=== PATIENT | male | born 1945 | race Caucasian/White ===

== ENCOUNTER 2020-05-30 07:14 | Day surgery (SDC) | payer MEDICARE, OTHER ==
[~2020-05-30 07:14] MED LIST: LACTATED RINGERS 1,000 ML IV SCH; LIDOCAINE 1% (10MG/ML) FOR IV START INTRADERMA PRN; MOXIFLOXACIN HCL 0.5% DROPS 3 ML BTL OP ONE; TETRACAINE 0.5% OPHTH (PF) DROPS 4 ML BTL OP ONE; TIMOLOL 0.5% OPHTH DROPS 5 ML BTL OP ONE
[2020-05-30 07:46] VITALS: RESP 16; TEMP 97.3
[2020-05-30] MEDS: CYCLOPENTOLATE 1% OPHTH SOLN 2 ML BTL OP ONE ×3 (07:51→08:02)
[2020-05-30] MEDS: PHENYLEPHRINE 2.5% OPHTH DRP 2ML OP NR ×3 (07:54→08:00)
[2020-05-30] MEDS ORDERED: fentaNYL (PF) 50 MCG/ML 2 ML AMP ONE (08:42)
[2020-05-30] MEDS ORDERED: MIDAZOLAM 2 MG/2 ML VIAL ONE (08:42)
[2020-05-30] MEDS ORDERED: EPINEPHrine (PF) 0.3 ML in BALANCED SALT IRRIG SOLN COMB2 500 ML IRRIGATION ONE (08:54)
[2020-05-30] MEDS ORDERED: BALANCED SALT IRRIG SOLN COMB2 15 ML IRRIG.SOLN IRRIGATION ONE (08:54)
[2020-05-30] MEDS ORDERED: LIDOCAINE 1% (PF) 10MG/ML VIAL MISCELLANE ONE (08:55)
[2020-05-30] MEDS ORDERED: DUOVISC KIT (GREEN BOX) INTRAOCULA ONE (08:55)
[2020-05-30] MEDS ORDERED: ATROPINE OPHTH SOLN 1% 5ML BTL RIGHT EYE ONE (09:12)
--- NOTE | 2020-05-30 09:14 | P.OP ---
Date of Procedure: 05/30/20 Preoperative Diagnosis: NS & CS Postoperative Diagnosis: same Procedure(s) Performed: PIOL, OD Implants: AO1UV 23.50 Anesthesia: MAC Surgeon: Ashkan Gan Pathology: none sent Condition: stable Disposition: same day Indications for Procedure: blurry vision Operative Findings: no complications
[2020-05-30 09:38] VITALS: BP 139/64; PULSE 56
--- NOTE | 2020-05-30 17:38 | OP ---
OPERATIVE REPORT DATE OF SURGERY: 05/30/2020. PROCEDURE: Phacoemulsification of cataract and intraocular lens implant of the right eye. PREOPERATIVE DIAGNOSIS: Nuclear sclerosis and cortical sclerosis, right eye. POSTOPERATIVE DIAGNOSIS: Nuclear sclerosis and cortical sclerosis, right eye. OPERATION: Phacoemulsification of cataract and Crystalens implant of the right eye. NARRATIVE: After obtaining the appropriate consent, the patient was brought to the operating room. There the patient was placed under cardiac monitoring, prepped and draped in the usual sterile manner. The patient was approached from the right temporal side. The 5.5 mm Dar ring inked in gentian mani was placed centrally on the cornea. At the 11 o'clock position, a 1.1 mm keratome was used to create a paracentesis port. Through this opening, 1% Xylocaine MPF 50/50 mix with balanced salt solution was injected into the anterior chamber. This was followed by stabilization of the anterior chamber with Duovisc viscoelastic. At the 9 o'clock position, a 2.75 mm senait keratome was used to create a self-scaling corneal flap incision in a Langerman fashion. Through this opening, a cystotome was introduced to begin a continuous tear capsulorrhexis which was completed using the Utrata forceps. Care was taken to ensure that the capsulorrhexis was at least the size of the meghana on the anterior cornea. Hydrodissection and hydrodelineation of the lens was accomplished with balanced salt solution. Phacoemulsification of the lens utilizing phaco chop was accomplished in 19.58 seconds at 18% power. Additional Xylocaine MPF was instilled into the anterior chamber. This was followed by removal of the remaining cortex under irrigation and aspiration along with careful polishing of the posterior capsule in a capsule vacuum mode. Additional Amvisc viscoelastic was then used to stabilize the capsular bag, and the Bausch [employer] Lomb Crystalens AO1UV 23.5 diopters intraocular lens was injected into the capsular bag without difficulty. The lens was rotated 270 degrees so that the haptics resided at the 6 and 12 o'clock positions, and all remaining viscoelastic was then removed from within the capsular bag and around the anterior chamber. The eye was brought to normal intraocular pressure through the paracentesis port along with slight hydration of the incision sites. Watertight integrity was confirmed using a fluorescein strip. The patient then received 2 drops of 0.5% timolol followed by 2 drops of Vigamox and 2 drops of 1% atropine. The patient was then lightly patched and shielded in the usual manner. There was no complications from the procedure. The patient tolerated the procedure well and was returned to outpatient recovery in good condition. PRIYANKA / HECTOR: [id number] / MTDD
== END 2020-05-30 09:59 | disposition home or self-care (01) ==
LOC: OR 07:14
PROVIDERS: ATTEND Ophthalmology
DX: H25.13 Age-related nuclear cataract, bilateral (principal); H25.013 Cortical age-related cataract, bilateral; H52.11 Myopia, right eye; H52.223 Regular astigmatism, bilateral; H52.4 Presbyopia; I10 Essential (primary) hypertension; E78.5 Hyperlipidemia, unspecified; E03.9 Hypothyroidism, unspecified; E78.00 Pure hypercholesterolemia, unspecified; Z79.890 Hormone replacement therapy; Z79.899 Other long term (current) drug therapy; Z98.890 Other specified postprocedural states; Z79.82 Long term (current) use of aspirin; Z82.3 Family history of stroke; Z82.49 Family history of ischemic heart disease and other diseases of the circulatory system
CPT/HCPCS: 66984; V2632; V2788; J2250; J0171; J3010; J2001

== ENCOUNTER 2021-04-24 10:30 | Day surgery (SDC) | payer MEDICARE ==
[~2021-04-24 10:30] MED LIST changes: -MOXIFLOXACIN HCL 0.5% DROPS 3 ML BTL OP ONE; -TETRACAINE 0.5% OPHTH (PF) DROPS 4 ML BTL OP ONE; -TIMOLOL 0.5% OPHTH DROPS 5 ML BTL OP ONE
[2021-04-24 11:00] VITALS: RESP 16; TEMP 97.6
[2021-04-24] MEDS ORDERED: LIDOCAINE 1% INJ 10MG/ML (20 ML MDV) ONE (11:06)
[2021-04-24] MEDS ORDERED: PROPOFOL 10 MG/ML 20 ML VIAL IV ONE (11:06)
--- NOTE | 2021-04-24 11:22 | P.PCN ---
Date of Procedure: 04/24/21 Procedure(s) Performed: BRIEF HISTORY: Patient is a 75-year-old pleasant white male scheduled for an elective colonoscopy as a part of evaluation of Hemoccult-positive stool. PROCEDURE PERFORMED: Colonoscopy with snare polypectomy. PREOPERATIVE DIAGNOSIS: Blood in the stool. IV sedation per Anesthesia. PROCEDURE: After informed consent was obtained, the patient, was brought into the endoscopy unit. IV sedation was administered by Anesthesia under continuous monitoring. Digital rectal examination was normal. Initially the Olympus CF-160 flexible video colonoscope was then inserted in the rectum, gradually advanced into the cecum without any difficulty. Careful examination was performed as the scope was gradually being withdrawn. Ileocecal valve and the appendiceal orifice were visualized and appeared normal. Prep was excellent. There was a 5 mm polyp noted in the base of the cecum that was removed by snare polypectomy. Scattered sigmoid diverticulosis. Mucosa of the cecum, ascending colon, transverse colon, descending colon, sigmoid colon, and rectum appeared normal. Retroflexion was performed in the rectum and no lesions were seen. The patient tolerated the procedure well. IMPRESSION: 5 mm cecal polyp status post polypectomy Scattered sigmoid diverticulosis RECOMMENDATIONS: Findings of this examination were discussed with the patient as well as his family. He was advised to follow with the biopsy results and if the biopsy reveals adenoma he can have a repeat colonoscopy in 5 years.
[2021-04-24 11:38] VITALS: BP 98/55; PULSE 66
== END 2021-04-24 12:20 | disposition home or self-care (01) ==
LOC: ORWHC2ENDO 10:30
PROVIDERS: ATTEND Internal Medicine Gastroenterology
DX: D12.0 Benign neoplasm of cecum (principal); K57.30 Diverticulosis of large intestine without perforation or abscess without bleeding; I10 Essential (primary) hypertension; E78.5 Hyperlipidemia, unspecified; E07.9 Disorder of thyroid, unspecified; Z79.890 Hormone replacement therapy; Z79.899 Other long term (current) drug therapy
CPT/HCPCS: 88305; 45385; J2001; J2704

== ENCOUNTER 2021-06-05 09:29 | Inpatient (IN) | payer MEDICARE ==
[2021-06-05 10:26] LABS: Anisocytosis Moderate; Basophils % (A) 0 %; Eosinophils % (A) 1 %; Hypochromasia Slight; Lymphocytes # (A) 1.3 k/uL (1.0-4.8); Lymphocytes % (A) 39 %; MCH 33.3 pg (25.0-35.0); MCHC 31.9 g/dL (31.0-37.0); MCV 104.4 fL (80.0-100.0); Macrocytosis Marked; Mean Platelet Volume 12.5; Monocytes # (A) 0.2 k/uL (0-1.0); Monocytes % (A) 5 %; Neutrophils # (A) 1.8 k/uL (1.3-7.7); Neutrophils % (A) 51 %; Platelet Count 213 k/uL (150-450); Poikilocytosis Slight; RDW 21.9 % (11.5-15.5); WBC 3.5 k/uL (3.8-10.6)
[2021-06-05 10:30] LABS: INR 1.1 (<1.2); Partial Thromboplastin Time 25.7 sec (22.0-30.0); Prothrombin Time 11.2 sec (9.0-12.0)
[2021-06-05 10:34] LABS: ALT 13 U/L (4-49); AST 15 U/L (17-59); African American GFR (CKD) >90 (>60 ml/min/1.73 sqM); Albumin 3.8 g/dL (3.5-5.0); Alkaline Phosphatase 46 U/L (38-126); Anion Gap 10 mmol/L; Blood Urea Nitrogen 28 mg/dL (9-20); Calcium 8.6 mg/dL (8.4-10.2); Carbon Dioxide 20 mmol/L (22-30); Chloride 107 mmol/L (98-107); Glucose 116 mg/dL (74-99); Non-African American GFR(CKD) 83 (>60 ml/min/1.73 sqM); Potassium 4.6 mmol/L (3.5-5.1); Sodium 137 mmol/L (137-145); Total Bilirubin 0.4 mg/dL (0.2-1.3); Total Protein 6.7 g/dL (6.3-8.2)
[2021-06-05 10:39] LABS: HGB 5.3 gm/dL (13.0-17.5)
[2021-06-05 10:40] LABS: HCT 16.7 % (39.0-53.0)
[2021-06-05 11:12] LABS: Polychromasia Present; RBC Fragments Present; Tear Drop Cells Present
[2021-06-05 11:13] LABS: Large Platelets Present
--- NOTE | 2021-06-05 11:16 | XR ---
EXAMINATION TYPE: XR chest 2V DATE OF EXAM: 06/05/2021 COMPARISON: NONE TECHNIQUE: PA and lateral views submitted. HISTORY: Shortness of breath FINDINGS: The lungs are clear and there is no pneumothorax, pleural effusion, or focal pneumonia. Heart enlar ged and there is hyperinflation and degenerative change of the spine. Coarsened interstitium. Diffuse osteopenia. Arthropathy of the shoulders. IMPRESSION: 1. Cardiomegaly and COPD correlate for chronic interstitial lung disease..
[2021-06-05] MEDS ORDERED: NALOXONE 0.4 MG/ML 1 ML VIAL IV PRN (11:27)
[2021-06-05] MEDS ORDERED: ONDANSETRON 4 MG/2 ML VIAL IVP PRN (11:27)
--- NOTE | 2021-06-05 11:35 | ED ---
Recheck HPI - General Chief Complaint: Recheck/Abnormal Lab/Rx Stated Complaint: Low Hemoglobin Time Seen by Provider: 06/05/21 10:10 Source: patient, family, RN notes reviewed Mode of arrival: ambulatory Limitations: no limitations - History of Present Illness Initial Comments: Patient is a 75-year-old male, with history of hypertension, hyperlipidemia, thyroid disorder, presenting to the emergency department by request from his primary care physician. He states he had routine labs drawn one to 2 days ago and he was called today stating that his hemoglobin was low and to go into the ER. They told him is was 5.5. He has no history of anemia, he had labs done 6 months ago which were normal. He denies any symptoms today except for some mild shortness breath that he's been dealing with over the past month. He states it's worse when he is up and doing activities, he also has some intermittent chest tightness along with this as well. He did talk to his doctor about this and had a follow-up with cardiology. He denies any abdominal pain, no nausea or vomiting, no dizziness. He denies hematochezia or hematemesis, he is not on blood thinners. He had a colonoscopy last month with Dr. Wilson, she removed a polyp but no other acute findings. He denies any hematuria. He has no further complaints at this time. Upon arrival to the ER, his vital signs are stable. - Related Data Home Medications Medication Instructions Recorded Confirmed Aspirin [Adult Low Dose Aspirin EC] 81 mg PO DAILY 05/29/20 06/05/21 Enalapril [Vasotec] 20 mg PO BID 05/29/20 06/05/21 Levothyroxine Sodium [Synthroid] 125 mcg PO QAM 05/29/20 06/05/21 Lovastatin [Mevacor] 20 mg PO BID 05/29/20 06/05/21 Multivitamins, Thera [Multivitamin 1 tab PO DAILY 05/29/20 06/05/21 (formulary)] amLODIPine [Norvasc] 5 mg PO QAM 05/29/20 06/05/21 Glucos Sul 2Kcl/MSM/Chond/C/Mn 1 each PO DAILY 04/24/21 06/05/21 [Glucosamine Chondroitin Cap] Krill Oil 500 mg PO DAILY 04/24/21 06/05/21 Allergies Allergy/AdvReac Type Severity Reaction Status Date / Time No Known Allergies Allergy Verified 06/05/21 10:55 Review of Systems ROS Statement: Those systems with pertinent positive or pertinent negative responses have been documented in the HPI. ROS Other: All systems not noted in ROS Statement are negative. Past Medical History Past Medical History: Hyperlipidemia, Hypertension, Thyroid Disorder History of Any Multi-Drug Resistant Organisms: None Reported Past Surgical History: Hernia Repair, Uterine Ablation Additional Past Surgical History / Comment(s): colonoscopy, cataract surgery Past Anesthesia/Blood Transfusion Reactions: No Reported Reaction Past Psychological History: No Psychological Hx Reported Smoking Status: Never smoker Past Alcohol Use History: Occasional Past Drug Use History: None Reported - Past Family History Mother Family Medical History: No Reported History General Exam - General Exam Comments Initial Comments: GENERAL: Patient is well-developed and well-nourished. Patient is nontoxic and in no acute distress. HEAD: Atraumatic, normocephalic. EYES: Pupils equal round and reactive to light, extraocular movements intact, sclera anicteric, conjunctiva are normal. Eyelids were unremarkable. ENT: Nares patent, oropharynx clear without exudates. Moist mucous membranes. NECK: Normal range of motion, supple without lymphadenopathy or JVD. LUNGS: Unlabored respirations. Breath sounds clear to auscultation bilaterally and equal. No wheezes rales or rhonchi. HEART: Regular rate and rhythm without murmurs, rubs or gallops. ABDOMEN: Soft, nontender, normoactive bowel sounds. No guarding, no rebound. No masses appreciated. : Deferred MUSCULOSKELETAL: Normal extremities with adequate strength and normal range of motion, no pitting or edema. No clubbing or cyanosis. NEUROLOGICAL: Patient is alert and oriented x 3. Motor and sensory are also intact. Cranial nerves II through XII grossly intact. Symmetrical smile. Normal speech, normal gait. PSYCH: Normal mood, normal affect. SKIN: Warm, Dry, normal turgor, no rashes or lesions noted. Limitations: no limitations Rectal exam: Present: normal inspection, normal rectal tone, heme (-) stool. Absent: black stool, bloody stool, hemorrhoids Course Vital Signs 06/05/21 06/05/21 06/05/21 09:34 12:00 12:29 Temperature 98.1 F 99 F 98.9 F Pulse Rate 85 87 73 Respiratory 18 16 18 Rate Blood Pressure 126/54 137/83 121/58 O2 Sat by Pulse 100 99 Oximetry 06/05/21 12:59 Temperature 98.8 F Pulse Rate 67 Respiratory 18 Rate Blood Pressure 121/65 O2 Sat by Pulse Oximetry Medical Decision Making - Medical Decision Making Patient is a 75-year-old male with history of hypertension, hyperlipidemia, thyroid disorder presenting for low hemoglobin that was done and routine labs a few days ago. His only complaint today is some dyspnea with exertion over the past month, he has been seeing his doctor about this. No belly pain, no hematochezia, no hematemesis, no hematuria. He had a colonoscopy done last month by Dr. Wilson, they removed a small polyp, no other findings. His hemoglobin today is 5.3. EKG is reading normal sinus rhythm, troponin is normal at this time. His stool occult blood is negative. Chest x-ray shows cardiomegaly and COPD. I spoke with Dr. Randolph who agrees to consult on this patient, at CT of the abdomen and pelvis was ordered per her request. This is currently pending. Dr. Chamberlain is accepting physician. Case discussed with Dr. Harp. - Lab Data Result diagrams: 06/05/21 10:09 06/05/21 10:09 Lab Results 06/05/21 06/05/21 06/05/21 Range/Units 10:09 10:09 10:09 WBC 3.5 L (3.8-10.6) k/uL RBC 1.60 L (4.30-5.90) m/uL Hgb 5.3 L* (13.0-17.5) gm/dL Hct 16.7 L* (39.0-53.0) % MCV 104.4 H (80.0-100.0) fL MCH 33.3 (25.0-35.0) pg MCHC 31.9 (31.0-37.0) g/dL RDW 21.9 H (11.5-15.5) % Plt Count 213 (150-450) k/uL MPV 12.5 Neutrophils % 51 % Lymphocytes % 39 % Monocytes % 5 % Eosinophils % 1 % Basophils % 0 % Neutrophils # 1.8 (1.3-7.7) k/uL Lymphocytes # 1.3 (1.0-4.8) k/uL Monocytes # 0.2 (0-1.0) k/uL Eosinophils # 0.0 (0-0.7) k/uL Basophils # 0.0 (0-0.2) k/uL Manual Slide Review Performed Large Platelets Present Polychromasia Present Hypochromasia Slight Poikilocytosis Slight Anisocytosis Moderate Macrocytosis Marked A Tear Drop Cells Present Fragmented RBCs Present PT 11.2 (9.0-12.0) sec INR 1.1 (<1.2) APTT 25.7 (22.0-30.0) sec Sodium 137 (137-145) mmol/L Potassium 4.6 (3.5-5.1) mmol/L Chloride 107 (98-107) mmol/L Carbon Dioxide 20 L (22-30) mmol/L Anion Gap 10 mmol/L BUN 28 H (9-20) mg/dL Creatinine 0.90 (0.66-1.25) mg/dL Est GFR (CKD-EPI)AfAm >90 (>60 ml/min/1.73 sqM) Est GFR (CKD-EPI)NonAf 83 (>60 ml/min/1.73 sqM) Glucose 116 H (74-99) mg/dL Plasma Lactic Acid Clemente (0.7-2.0) mmol/L Calcium 8.6 (8.4-10.2) mg/dL Total Bilirubin 0.4 (0.2-1.3) mg/dL AST 15 L (17-59) U/L ALT 13 (4-49) U/L Alkaline Phosphatase 46 (38-126) U/L Troponin I (0.000-0.034) ng/mL Total Protein 6.7 (6.3-8.2) g/dL Albumin 3.8 (3.5-5.0) g/dL Stool Occult Blood (Negative) Blood Type Blood Type Confirm Blood Type Recheck Bld Type Recheck Status Antibody Screen Crossmatch Spec Expiration Date 06/05/21 06/05/21 06/05/21 Range/Units 10:09 10:09 10:10 WBC (3.8-10.6) k/uL RBC (4.30-5.90) m/uL Hgb (13.0-17.5) gm/dL Hct (39.0-53.0) % MCV (80.0-100.0) fL MCH (25.0-35.0) pg MCHC (31.0-37.0) g/dL RDW (11.5-15.5) % Plt Count (150-450) k/uL MPV Neutrophils % % Lymphocytes % % Monocytes % % Eosinophils % % Basophils % % Neutrophils # (1.3-7.7) k/uL Lymphocytes # (1.0-4.8) k/uL Monocytes # (0-1.0) k/uL Eosinophils # (0-0.7) k/uL Basophils # (0-0.2) k/uL Manual Slide Review Large Platelets Polychromasia Hypochromasia Poikilocytosis Anisocytosis Macrocytosis Tear Drop Cells Fragmented RBCs PT (9.0-12.0) sec INR (<1.2) APTT (22.0-30.0) sec Sodium (137-145) mmol/L Potassium (3.5-5.1) mmol/L Chloride (98-107) mmol/L Carbon Dioxide (22-30) mmol/L Anion Gap mmol/L BUN (9-20) mg/dL Creatinine (0.66-1.25) mg/dL Est GFR (CKD-EPI)AfAm (>60 ml/min/1.73 sqM) Est GFR (CKD-EPI)NonAf (>60 ml/min/1.73 sqM) Glucose (74-99) mg/dL Plasma Lactic Acid Clemente 1.0 (0.7-2.0) mmol/L Calcium (8.4-10.2) mg/dL Total Bilirubin (0.2-1.3) mg/dL AST (17-59) U/L ALT (4-49) U/L Alkaline Phosphatase (38-126) U/L Troponin I 0.022 (0.000-0.034) ng/mL Total Protein (6.3-8.2) g/dL Albumin (3.5-5.0) g/dL Stool Occult Blood (Negative) Blood Type A Positive Blood Type Confirm Blood Type Recheck No Previous Record Bld Type Recheck Status CABO Indicated Antibody Screen NEGATIVE Crossmatch See Detail Spec Expiration Date 06/08/2021 - 2310 10/20/21 10/20/21 Range/Units 10:24 10:32 WBC (3.8-10.6) k/uL RBC (4.30-5.90) m/uL Hgb (13.0-17.5) gm/dL Hct (39.0-53.0) % MCV (80.0-100.0) fL MCH (25.0-35.0) pg MCHC (31.0-37.0) g/dL RDW (11.5-15.5) % Plt Count (150-450) k/uL MPV Neutrophils % % Lymphocytes % % Monocytes % % Eosinophils % % Basophils % % Neutrophils # (1.3-7.7) k/uL Lymphocytes # (1.0-4.8) k/uL Monocytes # (0-1.0) k/uL Eosinophils # (0-0.7) k/uL Basophils # (0-0.2) k/uL Manual Slide Review Large Platelets Polychromasia Hypochromasia Poikilocytosis Anisocytosis Macrocytosis Tear Drop Cells Fragmented RBCs PT (9.0-12.0) sec INR (<1.2) APTT (22.0-30.0) sec Sodium (137-145) mmol/L Potassium (3.5-5.1) mmol/L Chloride (98-107) mmol/L Carbon Dioxide (22-30) mmol/L Anion Gap mmol/L BUN (9-20) mg/dL Creatinine (0.66-1.25) mg/dL Est GFR (CKD-EPI)AfAm (>60 ml/min/1.73 sqM) Est GFR (CKD-EPI)NonAf (>60 ml/min/1.73 sqM) Glucose (74-99) mg/dL Plasma Lactic Acid Clemente (0.7-2.0) mmol/L Calcium (8.4-10.2) mg/dL Total Bilirubin (0.2-1.3) mg/dL AST (17-59) U/L ALT (4-49) U/L Alkaline Phosphatase (38-126) U/L Troponin I (0.000-0.034) ng/mL Total Protein (6.3-8.2) g/dL Albumin (3.5-5.0) g/dL Stool Occult Blood Negative (Negative) Blood Type Blood Type Confirm A Positive Blood Type Recheck Bld Type Recheck Status Antibody Screen Crossmatch Spec Expiration Date - EKG Data EKG Comments: Normal sinus rhythm, nonspecific ST abnormality, no signs of acute ST segment elevation. Ventricular rate 81, AK interval 166, QT 402. Disposition Clinical Impression: Acute anemia Disposition: ADMITTED IP TO THIS HOSP Condition: Stable Decision Date: 06/05/21 Decision Time: 11:35
[2021-06-05 11:51] LABS: Appearance,Urine Clear (Clear); Bilirubin,Urine Negative (Negative); Blood,Urine Negative (Negative); Color,Urine Light Yellow; Glucose,Urine (UA) Negative (Negative); Ketones,Urine Negative (Negative); Leukocyte Esterase,Urine Negative (Negative); Nitrite,Urine Negative (Negative); Protein,Urine Negative (Negative); Specific Gravity,Urine 1.016 (1.001-1.035); Urobilinogen,Urine <2.0 mg/dL (<2.0)
--- NOTE | 2021-06-05 12:17 | CT ---
EXAMINATION TYPE: CT abdomen pelvis w con DATE OF EXAM: 06/05/2021 COMPARISON: HISTORY: Low Hemoglobin CT DLP: 1423.6 mGycm Automated exposure control for dose reduction was used. CONTRAST: CT scan of the abdomen pelvis is performed with IV Contrast, patient injected with 100 mL of Isovue 3 00. FINDINGS- LUNG BASES-small right pleural effusion. LIVER/GB- No gross abnormality is appreciated. PANCREAS-9 mm nodule just posterior to the body and uncinate process of the pancreas axial image 30 i s indeterminate recommend MRI.. SPLEEN- No gross abnormality is seen. ADRENALS- No gross abnormality is seen. KIDNEYS/BLADDER- no hydronephrosis. There is a simple appearing left renal cyst. BOWEL-bowel gas pattern nonspecific with changes of diverticulosis. Multiple prominent small bowel lo ops. LYMPH NODES- No greater than 1cm abdominal or pelvic lymph nodes areappreciated. OSSEOUS STRUCTURES-there is an age indeterminate fracture of L2 approximate 5% retropulsion. Recommen d follow-up MRI. Lucency involving the posterior right iliac bone. This could be correlated with bone scan.. OTHER- the prostate gland is enlarged. Correlate with PSA. Atherosclerotic change of the aorta which is of normal caliber. IMPRESSION- 1. Small right pleural effusion. 2. Prostate is markedly enlarged correlate with PSA. 3. Age-indeterminate fracture involving the body of L2 with 5% retropulsion. Posterior elements appea r to be intact. No prior exams available for comparison, recommend MRI. Pathologic fracture not exclu ded 4. there is a 9 mm nodule in the peripancreatic space posterior to the body the pancreas which could represent a small lymph node. Recommend is also be evaluated with MRI. 5. There are a few scattered prominent small bowel loops which could be related to an ileus or enteri tis correlate clinically. 6. Cardiomegaly and coronary artery calcification. 7. Lucent lesion involving the posterior right iliac bone could be correlated with bone scan.
--- NOTE | 2021-06-05 14:36 | P.GSCN ---
<Karime Gonzalez - Last Filed: 06/05/21 14:02> History of Present Illness Consult date: 06/05/21 Reason for Consult: Anemia Requesting physician: Maryuri Lopez History of present illness: CHIEF COMPLAINT: Abnormal labs, shortness of breath HISTORY OF PRESENT ILLNESS: This is a 75-year-old male who presented to the e mergemny department today after receiving a call from his physician that his blood count was low and he needed to come to the emergency department for further evaluation and blood transfusion. Apparently the patient was having routine blood draw and was found to be anemic. He denies any history of anemia, denies any history of previous blood transfusion, or bleeding disorders. He denies any anticoagulation, frequent NSAID use, or acid reflux. He denies any abdominal pain, nausea, or vomiting. He denies any black stool or hematochezia. Denies any hematemesis. He recently underwent a colonoscopy on 04/24/[address] Wilson for cold positive stool. Colonoscopy was significant for polypectomy and scattered sigmoid diverticulosis. Biopsy results came back as tubular adenoma. He states over the last 1 month he has had some increased shortness of breath especially exertional dyspnea and fatigue. WBC 3.5 hemoglobin 5.3 hematocrit 16.7 platelet count 213,000 INR 1.1. Stool occult blood negative. Patient is currently getting 1 unit of PRBC transfusion. PAST MEDICAL HISTORY: Hypertension, hyperlipidemia, hypothyroid PAST SURGICAL HISTORY: Hernia repair, colonoscopy 04/24/21, cataract surgery MEDICATIONS: See list. ALLERGIES: See list. SOCIAL HISTORY: No illicit drug use. Nonsmoker. REVIEW OF SYSTEMS: CONSTITUTIONAL: Denies fever or chills. HEENT: Denies blurred vision, vision changes, or eye pain. Denies hemoptysis ENDOCRINE: Denies heat or cold intolerance. CARDIOVASCULAR: Denies chest pain or pressure. RESPIRATORY: Shortness of breath, dyspnea on exertion. GASTROINTESTINAL: Denies abdominal pain. Denies nausea or vomiting. Denies black stool or blood in stool. Denies hematemesis. NEURO: Denies history of seizures. PSYCH: No depression or suicidal ideation HEMATOLOGIC: Denies bleeding disorders. No previous blood transfusions. GENITOURINARY: Denies any blood in urine or increased urinary frequency. MUSCULOSKELETAL: Denies myalgias. Denies joint swelling. Denies decreased range of motion beyond patients baseline. SKIN: Denies pruitis. Denies rash. PHYSICAL EXAM: VITAL SIGNS: Reviewed GENERAL: Well-developed in no acute distress. HEENT: No sclera icterus. Extraocular movements grossly intact. Moist buccal mucosa. Head is atraumatic, normocephalic. Hears conversational speech. No nasal drainage. NECK: Supple without lymphadenopathy. CHEST: Non-labored respirations and equal bilateral excursions. CARDIOVASCULAR: Palpable 2+ radial pulses. ABDOMEN: Soft. Nondistended. Nontender MUSCULOSKELETAL: No clubbing or cyanosis. NEUROLOGIC: No focal or lateralizing signs. Cranial nerves II through XII grossly intact. PSYCH: Appropriate affect. Alert and oriented to person, place and time. SKIN: Well perfused. Good skin turgor. LABORATORY DATA: WBC 3.5 hemoglobin 5.3 hematocrit 16.7 platelet count 213,000 INR 1.1 troponin 0.022 Sodium 137 potassium 4.6 be within 28 creatinine 0.9 calcium 8.6 Total bilirubin 0.4 AST 15 ALT 13 alkaline phosphatase 46, total protein 6.7 IMAGING: CT abdomen and pelvis: Small right pleural effusion, prostate markedly enlarged correlate with PSA, age indeterminate fracture involving the body of L2 with 5% retropulsion. Posterior elements appear to be intact. No prior exams available for comparison, recommend MRI. Pathologic fracture not excluded. 9 mm nodule in the area pancreatic posterior to body of the pancreas which could represent a small lymph node. Recommend also be evaluated with MRI. Few scattered prominent small bowel loops which could be related to an ileus or enteritis, correlate clinically. Cardiomegaly and coronary artery calcification. Lucent lesion involving the posterior right iliac bone could be correlated with bone scan. ASSESSMENT: 1. Anemia 2. Shortness of breath, dyspnea with exertion 3. History of hypertension 4. History of hyperlipidemia 5. History of hypothyroidism PLAN: - Anemia panel ordered -Patient may have regular diet, nothing by mouth after midnight -Agree with blood transfusion -Patient is scheduled for EGD tomorrow -Repeat CBC in the morning -Consider hematology consult if EGD with no evidence of GI bleed The impression and plan of care has been dictated as directed. Dr. Randolph I performed a history and examination of this patient, discussed the same with the dictator. I agree with the dictator's note ,documented as a scribe. Any additional findings or plans will be noted. Past Medical History Past Medical History: Hyperlipidemia, Hypertension, Thyroid Disorder History of Any Multi-Drug Resistant Organisms: None Reported Past Surgical History: Hernia Repair, Uterine Ablation Additional Past Surgical History / Comment(s): colonoscopy, cataract surgery Past Anesthesia/Blood Transfusion Reactions: No Reported Reaction Past Psychological History: No Psychological Hx Reported Smoking Status: Never smoker Past Alcohol Use History: Occasional Past Drug Use History: None Reported - Past Family History Mother Family Medical History: No Reported History Medications and Allergies Home Medications Medication Instructions Recorded Confirmed Type Aspirin [Adult Low Dose Aspirin EC] 81 mg PO DAILY 05/29/20 06/05/21 History Enalapril [Vasotec] 20 mg PO BID 05/29/20 06/05/21 History Levothyroxine Sodium [Synthroid] 125 mcg PO QAM 05/29/20 06/05/21 History Lovastatin [Mevacor] 20 mg PO BID 05/29/20 06/05/21 History Multivitamins, Thera [Multivitamin 1 tab PO DAILY 05/29/20 06/05/21 History (formulary)] amLODIPine [Norvasc] 5 mg PO QAM 05/29/20 06/05/21 History Glucos Sul 2Kcl/MSM/Chond/C/Mn 1 each PO DAILY 04/24/21 06/05/21 History [Glucosamine Chondroitin Cap] Krill Oil 500 mg PO DAILY 04/24/21 06/05/21 History Allergies Allergy/AdvReac Type Severity Reaction Status Date / Time No Known Allergies Allergy Verified 06/05/21 10:55 Surgical - Exam Vital Signs Temp Pulse Resp BP Pulse Ox 98.1 F 85 18 126/54 100 06/05/21 09:34 06/05/21 09:34 06/05/21 09:34 06/05/21 09:34 06/05/21 09:34 Results - Labs 06/05/21 10:09 06/05/21 10:09 Abnormal Lab Results - Last 24 Hours (Table) 06/05/21 06/05/21 06/05/21 Range/Units 10:09 10:09 10:10 WBC 3.5 L (3.8-10.6) k/uL RBC 1.60 L (4.30-5.90) m/uL Hgb 5.3 L* (13.0-17.5) gm/dL Hct 16.7 L* (39.0-53.0) % MCV 104.4 H (80.0-100.0) fL RDW 21.9 H (11.5-15.5) % Macrocytosis Marked A Carbon Dioxide 20 L (22-30) mmol/L BUN 28 H (9-20) mg/dL Glucose 116 H (74-99) mg/dL AST 15 L (17-59) U/L Crossmatch See Detail Diabetes panel 06/05/21 Range/Units 10:09 Sodium 137 (137-145) mmol/L Potassium 4.6 (3.5-5.1) mmol/L Chloride 107 (98-107) mmol/L Carbon Dioxide 20 L (22-30) mmol/L BUN 28 H (9-20) mg/dL Creatinine 0.90 (0.66-1.25) mg/dL Glucose 116 H (74-99) mg/dL Calcium 8.6 (8.4-10.2) mg/dL AST 15 L (17-59) U/L ALT 13 (4-49) U/L Alkaline Phosphatase 46 (38-126) U/L Total Protein 6.7 (6.3-8.2) g/dL Albumin 3.8 (3.5-5.0) g/dL Calcium panel 06/05/21 Range/Units 10:09 Calcium 8.6 (8.4-10.2) mg/dL Albumin 3.8 (3.5-5.0) g/dL Pituitary panel 06/05/21 Range/Units 10:09 Sodium 137 (137-145) mmol/L Potassium 4.6 (3.5-5.1) mmol/L Chloride 107 (98-107) mmol/L Carbon Dioxide 20 L (22-30) mmol/L BUN 28 H (9-20) mg/dL Creatinine 0.90 (0.66-1.25) mg/dL Glucose 116 H (74-99) mg/dL Calcium 8.6 (8.4-10.2) mg/dL Adrenal panel 06/05/21 Range/Units 10:09 Sodium 137 (137-145) mmol/L Potassium 4.6 (3.5-5.1) mmol/L Chloride 107 (98-107) mmol/L Carbon Dioxide 20 L (22-30) mmol/L BUN 28 H (9-20) mg/dL Creatinine 0.90 (0.66-1.25) mg/dL Glucose 116 H (74-99) mg/dL Calcium 8.6 (8.4-10.2) mg/dL Total Bilirubin 0.4 (0.2-1.3) mg/dL AST 15 L (17-59) U/L ALT 13 (4-49) U/L Alkaline Phosphatase 46 (38-126) U/L Total Protein 6.7 (6.3-8.2) g/dL Albumin 3.8 (3.5-5.0) g/dL <AgustínZuri N - Last Filed: 06/06/21 10:27> History of Present Illness History of present illness: CHIEF COMPLAINT: Acute anemia HISTORY OF PRESENT ILLNESS: The patient is a 75 year old male who was sent to the emergency today after abnormal hemoglobin on repeat blood work from his provider's office. His hemoglobin at his physician's office was 5.5 g/dL. He presents emergency room with repeat hemoglobin hemoglobin of 5.3. Denies any hematemesis. Denies any dark stools or bloody stools. Denies any gastrointestinal bleeding. He does report increased fatigue in the last several days. No reports of abdominal pain. Last colonoscopy less than 2 months ago with colon adenoma resected. He has not had a prior upper endoscopy. General surgery is consulted for anemia of unclear etiology. PAST MEDICAL HISTORY: See list and reviewed PAST SURGICAL HISTORY: See list and reviewed MEDICATIONS: See list and reviewed ALLERGIES: See list and reviewed SOCIAL HISTORY: See list and reviewed FAMILY HISTORY: See list and reviewed REVIEW OF ORGAN SYSTEMS: CONSTITUTIONAL: No fevers or chills. EYES: Denies any trouble with vision. No glasses. HEENT: No difficulties with hearing. No nosebleeds. No difficulty swallowing. RESPIRATORY: Denies pneumonia. Denies any troubles with breathing or dyspnea on exertion. CARDIOVASCULAR: Denies any chest pain, palpitations, or recent heart attacks. Has hyperlipidemia and hypertension. GASTROINTESTINAL: Denies fatty food intolerance. Denies change in bowel habits and gas bloat. GENITOURINARY: Denies any blood in urine or increased urinary frequency. NEUROLOGICAL: Denies any numbness or tingling along the distal extremities. No seizure disorders or headaches. MUSCULOSKELETAL: Has back pain, stiffness or joint arthritis. SKIN: No current skin cancer. No rash. PSYCHIATRIC: Denies current depression or suicidal thoughts. ENDOCRINE: Denies current thyroid disorders. Denies any blood sugar glucose intolerance. HEME/LYMPHATIC: New anemia. ALLERGY/IMMUNOLOGY: No immunoglobulin therapy. No immune deficiencies. BREAST: Denies current breast lumps, pain or nipple discharge. PHYSICAL EXAM: VITALS: Reviewed CONSTITUTIONAL: Well developed and in no acute distress. EYES: Conjuctivae without sclera icterus. Extraocular movements grossly intact. HEAD, EARS, NOSE, THROAT: Moist buccal mucosa. Head is atraumatic, normocephalic. Hears conversational speech. No nasal drainage. NECK: Supple. No JV distention. No thyroidomegaly. RESPIRATORY: Non-labored respirations and equal bilateral excursions. No gross wheezes. CARDIOVASCULAR: Regular rate and rhythm. Palpable 2+ radial pulses. ABDOMEN: Nontender. LYMPH: No gross neck lymphadenopathy. MUSCULOSKELETAL: No clubbing cyanosis or edema. SKIN: Warm and well perfused with good skin turgor. NEUROLOGIC: Cranial nerves II through XII grossly intact. No focal or lateralizing signs. PSYCH: Appropriate affect. Alert and oriented to person, place and time. Displays appropriate insight. CLINCAL LABS: Reviewed. Hemoglobin 5.3 low with severe anemia. RADIOLOGY: Report reviewed Chest x-ray demonstrates COPD including cardiomegaly. EKG: Nonspecific ST abnormality. RECORDS: Colonoscopy April 2021 demonstrates sigmoid diverticulosis with 5- mm resected polyp of the cecum. PATHOLOGY: Tubular adenoma of cecum. ASSESSMENT: 1. Severe anemia, hemoglobin 5.3 of unclear etiology. PLAN: 1. We'll proceed with upper endoscopy as colonoscopy was less than 2 months ago. 2. Recommend CT of the abdomen and pelvis as lymphoma or masses may account for acute anemia. 3. Recommend iron indices and iron panel for anemia 4. Further recommendations pending results of imaging. 5. Agree with blood transfusion for symptomatic anemia ADVANCE DIRECTIVE: Thank you for this kind consultation. Surgical - Exam Vital Signs Temp Pulse Resp BP Pulse Ox 98.1 F 85 18 126/54 100 06/05/21 09:34 06/05/21 09:34 06/05/21 09:34 06/05/21 09:34 06/05/21 09:34 Results - Labs 06/06/21 08:43 06/05/21 10:09 Abnormal Lab Results - Last 24 Hours (Table) 06/05/21 06/05/21 06/05/21 Range/Units 10:09 10:09 10:10 WBC 3.5 L (3.8-10.6) k/uL RBC 1.60 L (4.30-5.90) m/uL Hgb 5.3 L* (13.0-17.5) gm/dL Hct 16.7 L* (39.0-53.0) % MCV 104.4 H (80.0-100.0) fL RDW 21.9 H (11.5-15.5) % Macrocytosis Marked A Carbon Dioxide 20 L (22-30) mmol/L BUN 28 H (9-20) mg/dL Glucose 116 H (74-99) mg/dL AST 15 L (17-59) U/L Crossmatch See Detail Diabetes panel 06/05/21 Range/Units 10:09 Sodium 137 (137-145) mmol/L Potassium 4.6 (3.5-5.1) mmol/L Chloride 107 (98-107) mmol/L Carbon Dioxide 20 L (22-30) mmol/L BUN 28 H (9-20) mg/dL Creatinine 0.90 (0.66-1.25) mg/dL Glucose 116 H (74-99) mg/dL Calcium 8.6 (8.4-10.2) mg/dL AST 15 L (17-59) U/L ALT 13 (4-49) U/L Alkaline Phosphatase 46 (38-126) U/L Total Protein 6.7 (6.3-8.2) g/dL Albumin 3.8 (3.5-5.0) g/dL Calcium panel 06/05/21 Range/Units 10:09 Calcium 8.6 (8.4-10.2) mg/dL Albumin 3.8 (3.5-5.0) g/dL Pituitary panel 06/05/21 Range/Units 10:09 Sodium 137 (137-145) mmol/L Potassium 4.6 (3.5-5.1) mmol/L Chloride 107 (98-107) mmol/L Carbon Dioxide 20 L (22-30) mmol/L BUN 28 H (9-20) mg/dL Creatinine 0.90 (0.66-1.25) mg/dL Glucose 116 H (74-99) mg/dL Calcium 8.6 (8.4-10.2) mg/dL Adrenal panel 06/05/21 Range/Units 10:09 Sodium 137 (137-145) mmol/L Potassium 4.6 (3.5-5.1) mmol/L Chloride 107 (98-107) mmol/L Carbon Dioxide 20 L (22-30) mmol/L BUN 28 H (9-20) mg/dL Creatinine 0.90 (0.66-1.25) mg/dL Glucose 116 H (74-99) mg/dL Calcium 8.6 (8.4-10.2) mg/dL Total Bilirubin 0.4 (0.2-1.3) mg/dL AST 15 L (17-59) U/L ALT 13 (4-49) U/L Alkaline Phosphatase 46 (38-126) U/L Total Protein 6.7 (6.3-8.2) g/dL Albumin 3.8 (3.5-5.0) g/dL Assessment and Plan (1) Cardiomegaly Current Visit: Yes Status: Acute Code(s): I51.7 - CARDIOMEGALY SNOMED Code(s): 8118090 (2) Adenoma of cecum Current Visit: Yes Status: Acute Code(s): D12.0 - BENIGN NEOPLASM OF CECUM SNOMED Code(s): 26124553 (3) Sigmoid diverticulosis Current Visit: Yes Status: Acute Code(s): K57.30 - DVRTCLOS OF LG INT W/O PERFORATION OR ABSCESS W/O BLEEDING SNOMED Code(s): 194843447 (4) Hypertensive heart disease Current Visit: Yes Status: Acute Code(s): I11.9 - HYPERTENSIVE HEART DISEASE WITHOUT HEART FAILURE SNOMED Code(s): 24758218 (5) Acute anemia Current Visit: Yes Status: Acute Code(s): D64.9 - ANEMIA, UNSPECIFIED SNOMED Code(s): 345548730
--- NOTE | 2021-06-05 17:15 | P.HPIM ---
History of Present Illness H&P Date: 06/05/21 Chief Complaint: Low hemoglobin This is a very pleasant 75-year-old patient, follows with . Chronic stable medical conditions include hypertension, hyperlipidemia, hypothyroid. Patient is fairly active. Patient had a six-month checkup with his family doctor and was told to come into the ER as his hemoglobin was 5.5. Patient does take a baby aspirin. He has been recently being feeling tired and getting easily short winded with activity. May 07 patient had a negative colonoscopy for Dr. Kervin Wilson only finding was that of a polyp and sigmoid diverticulosis. This had resulted following a positive occult blood test. Patient denies any reflux symptoms. Appetite is good. No weight loss. We do not have GI services in the hospital for [address] Aguirre was consulted from surgical team. Patient's son is at the bedside. Review of systems: GEN.: Tired EYES: None HEENT: None NECK: None RESPIRATORY: None CARDIOVASCULAR: None GASTROINTESTINAL: None GENITOURINARY: None MUSCULOSKELETAL: None LYMPHATICS: None HEMATOLOGICAL: None PSYCHIATRY: None NEUROLOGICAL: None Past medical history to include: Hypertension, hyperlipidemia, hypothyroid Social history: Patient smoked a pack a day for 25 years. Stop in 2009. Alcohol occasionally. Son lives with him. Physical examination: VITAL SIGNS: 98.1, 85, 18, 126/54, 100% room air GENERAL: BMI 29.3, sitting on edge of bed, awake. EYES: [Pupils equal. Conjunctiva pale. HEENT: External appearance of nose and ears normal, oral cavity grossly normal. NECK: JVD not raised; masses not palpable. HEART: First and second heart sounds are normal; no edema. LUNGS: Respiratory rate normal; clear to auscultation. ABDOMEN: Soft, nontender, liver spleen not palpable, no masses palpable. PSYCH: Alert and oriented x3; mood and affect normal. NEUROLOGICAL: Cranial nerves grossly intact; no facial asymmetry, power and sensation grossly intact. LYMPHATICS: No lymph nodes palpable in the axilla and neck INVESTIGATIONS, reviewed in the clinical context: WBC 3.5 hemoglobin 5.3 MCV 104.4 platelets 213 Potassium 4.6 BUN 28 creatinine 0.9 UA: Negative Occult blood stools: Negative Coronavirus [PCR]: Not detected EKG tracing personally reviewed by me-normal sinus rhythm. Rate 81. Nonspecific ST segment changes. Chest x-ray film personally reviewed by me-borderline cardiomegaly. Some hyperinflation. Computed tomography scan of the abdomen and pelvis Small right pleural effusion. Prostate is markedly enlarged. Age indeterminate fracture of the L2. Cardiomegaly with coronary artery calcification. Assessment and plan: -Patient presents hemoglobin of 5.5. Testing baby aspirin. He had positive guaiac stools for which she did have a colonoscopy last month and was unrema rkable except for diverticulosis. Patient denies any abdominal pain. No GERD symptoms. No weight loss or loss of appetite. GI services not available to the hospital for next 2 weeks. General surgery consult. Assessment dramatic sigmoid diverticulosis -Essential hypertension Norvasc 5 mg by mouth daily Vasotec 20 mg twice a day -Hyperlipidemia Mevacor 20 mg twice a day -Hypothyroid Synthroid 125 g daily Patient received 1 unit of blood in the ER. Repeat CBC. Hold aspirin. PPI. Home medications resumed. Dr. Aguirre consulted. Possible EGD. Care was discussed the patient's and the son at the bedside. Past Medical History Past Medical History: Hyperlipidemia, Hypertension, Thyroid Disorder History of Any Multi-Drug Resistant Organisms: None Reported Past Surgical History: Hernia Repair, Uterine Ablation Additional Past Surgical History / Comment(s): colonoscopy, cataract surgery Past Anesthesia/Blood Transfusion Reactions: No Reported Reaction Past Psychological History: No Psychological Hx Reported Smoking Status: Never smoker Past Alcohol Use History: Occasional Past Drug Use History: None Reported - Past Family History Mother Family Medical History: No Reported History Medications and Allergies Home Medications Medication Instructions Recorded Confirmed Type Aspirin [Adult Low Dose Aspirin EC] 81 mg PO DAILY 05/29/20 06/05/21 History Enalapril [Vasotec] 20 mg PO BID 05/29/20 06/05/21 History Levothyroxine Sodium [Synthroid] 125 mcg PO QAM 05/29/20 06/05/21 History Lovastatin [Mevacor] 20 mg PO BID 05/29/20 06/05/21 History Multivitamins, Thera [Multivitamin 1 tab PO DAILY 05/29/20 06/05/21 History (formulary)] amLODIPine [Norvasc] 5 mg PO QAM 05/29/20 06/05/21 History Glucos Sul 2Kcl/MSM/Chond/C/Mn 1 each PO DAILY 04/24/21 06/05/21 History [Glucosamine Chondroitin Cap] Krill Oil 500 mg PO DAILY 04/24/21 06/05/21 History Allergies Allergy/AdvReac Type Severity Reaction Status Date / Time No Known Allergies Allergy Verified 06/05/21 10:55 Physical Exam Vitals: Vital Signs Temp Pulse Pulse Resp BP BP Pulse Ox 06/05/21 16:10 98.6 F 73 18 139/70 100 06/05/21 14:24 98.6 F 70 20 126/61 99 06/05/21 12:59 98.8 F 67 18 121/65 06/05/21 12:29 98.9 F 73 18 121/58 06/05/21 12:00 99 F 87 16 137/83 99 06/05/21 09:34 98.1 F 85 18 126/54 100 Intake and Output 06/05/21 06/05/21 06/05/21 06:59 14:59 22:59 Intake Total 0 310 Balance 0 310 Intake: Blood Product 0 310 Rc Irr As1 Unit 0 310 [id number] Other: Weight 95.254 kg Results CBC & Chem 7: 06/05/21 10:09 06/05/21 10:09 Labs: Abnormal Lab Results - Last 24 Hours (Table) 06/05/21 06/05/21 06/05/21 Range/Units 10:09 10:09 10:10 WBC 3.5 L (3.8-10.6) k/uL RBC 1.60 L (4.30-5.90) m/uL Hgb 5.3 L* (13.0-17.5) gm/dL Hct 16.7 L* (39.0-53.0) % MCV 104.4 H (80.0-100.0) fL RDW 21.9 H (11.5-15.5) % Macrocytosis Marked A Carbon Dioxide 20 L (22-30) mmol/L BUN 28 H (9-20) mg/dL Glucose 116 H (74-99) mg/dL AST 15 L (17-59) U/L Crossmatch See Detail Thrombosis Risk Factor Assmnt - Choose All That Apply Each Risk Factor Represents 3 Points: Age 75 years or older Thrombosis Risk Factor Assessment Total Risk Factor Score: 3 Thrombosis Risk Factor Assessment Level: Moderate Risk
[2021-06-05 17:25] LABS: Anisocytosis Moderate; HCT 21.6 % (39.0-53.0); Hypochromasia Slight; MCH 31.9 pg (25.0-35.0); MCHC 31.9 g/dL (31.0-37.0); Macrocytosis Marked; Mean Platelet Volume 12.3; Platelet Count 230 k/uL (150-450); Poikilocytosis Slight; RBC 2.16 m/uL (4.30-5.90); RDW 23.6 % (11.5-15.5); WBC 3.9 k/uL (3.8-10.6)
[2021-06-05 17:34] LABS: HGB 6.9 gm/dL (13.0-17.5)
[2021-06-05] MEDS: lisinopriL 20 MG TAB PO SCH (19:45)
[2021-06-05] MEDS ORDERED: ATORVASTATIN 10 MG TAB PO SCH (21:00)
[2021-06-06 02:09] LABS: Anisocytosis Moderate; Basophils % (A) 1 %; Eosinophils % (A) 1 %; HCT 22.6 % (39.0-53.0); HGB 7.1 gm/dL (13.0-17.5); Hypochromasia Slight; Lymphocytes # (A) 1.6 k/uL (1.0-4.8); Lymphocytes % (A) 37 %; MCH 31.4 pg (25.0-35.0); MCHC 31.6 g/dL (31.0-37.0); MCV 99.3 fL (80.0-100.0); Macrocytosis Moderate; Mean Platelet Volume 12.5; Monocytes # (A) 0.2 k/uL (0-1.0); Monocytes % (A) 5 %; Neutrophils # (A) 2.3 k/uL (1.3-7.7); Neutrophils % (A) 52 %; Platelet Count 203 k/uL (150-450); Poikilocytosis Moderate; RBC 2.27 m/uL (4.30-5.90); RDW 23.2 % (11.5-15.5); WBC 4.3 k/uL (3.8-10.6)
[2021-06-06 05:17] LABS: % Iron Saturation 34.53 (15.00-50.00); Folate, Serum 13.8 ng/mL (4.40-31.00)
[2021-06-06] MEDS ORDERED: LEVOTHYROXINE 125 MCG TAB PO SCH (06:30)
[2021-06-06] MEDS: lisinopriL 20 MG TAB PO SCH (08:25)
[2021-06-06] MEDS ORDERED: amLODIPine 5 MG TAB PO SCH (09:00)
[2021-06-06 09:45] LABS: Anisocytosis Moderate; HCT 21.9 % (39.0-53.0); HGB 7.2 gm/dL (13.0-17.5); Hypochromasia Slight; MCH 32.8 pg (25.0-35.0); MCHC 32.9 g/dL (31.0-37.0); MCV 99.5 fL (80.0-100.0); Macrocytosis Moderate; Mean Platelet Volume 11.8; Platelet Count 187 k/uL (150-450); Poikilocytosis Slight; RBC 2.21 m/uL (4.30-5.90); RDW 22.9 % (11.5-15.5); WBC 3.8 k/uL (3.8-10.6)
[2021-06-06] MEDS ORDERED: LIDOCAINE 1% INJ 10MG/ML (20 ML MDV) ONE (13:08)
[2021-06-06] MEDS ORDERED: PROPOFOL 10 MG/ML 20 ML VIAL IV ONE (13:08)
[2021-06-06] MEDS ORDERED: LACTATED RINGERS 1,000 ML IV ONE ×2 (13:13)
--- NOTE | 2021-06-06 13:25 | P.PCN ---
Date of Procedure: 06/06/21 Description of Procedure: PREOPERATIVE DIAGNOSIS: Acute anemia, hemoglobin 5.3 POSTOPERATIVE DIAGNOSIS: Acute anemia, hemoglobin 5.3 Diaphragmatic hiatal hernia OPERATION: Esophagogastroduodenoscopy with biopsies along antrum and duodenum SURGEON: Zuri Randolph MD ANESTHESIA: MAC. INDICATIONS: The patient is a 75-year-old male who presents with acute anemia, hemoglobin 5.3 of unclear etiology. Benefits and risks of the procedure were described. Informed consent was obtained. DESCRIPTION: The patient was brought into the endoscopy suite and laid in the left lateral decubitus position. An Olympus gastroscope was passed along the posterior oropharynx down to the distal esophagus where the squamocolumnar junction was encountered at 40 cm from the incisors. The stomach was entered and no bile reflux was found. Additional findings are listed below. Biopsies with cold forceps were obtained of the antrum. The first through third portion of the duodenum was examined. Retroflexion of the scope confirmed Hill grade 3 lower esophageal valve. The squamocolumnar junction demonstrated LA grade B erosive esophagitis. The stomach was desufflated. The patient tolerated the procedure well. FINDINGS: Squamocolumnar junction 40 cm from the incisors. Diaphragmatic hiatus at 42 cm. Hiatal hernia, 2 cm Hill grade 3 lower esophageal valve. LA grade B erosive esophagitis. No peptic or duodenal ulcer identified. No active duodenitis. RECOMMENDATIONS: 1. Findings above review of without clear cause of acute anemia of 5.3. 2. Recommend hematology assessment. 3. Diet as tolerated. 4. Patient completed a recent colonoscopy 1 month ago.
[2021-06-06 17:14] VITALS: BP 143/58; PULSE 68; RESP 16; TEMP 98.3
[2021-06-06 18:20] LABS: Anisocytosis Moderate; HGB 8.4 gm/dL (13.0-17.5); MCH 33.3 pg (25.0-35.0); MCHC 35.1 g/dL (31.0-37.0); Macrocytosis Slight; Mean Platelet Volume 12.2; Platelet Count 195 k/uL (150-450); Poikilocytosis Moderate; RBC 2.53 m/uL (4.30-5.90); RDW 22.1 % (11.5-15.5); WBC 3.6 k/uL (3.8-10.6)
--- NOTE | 2021-06-07 19:01 | P.DS ---
Providers Date of admission: 06/05/21 11:27 Expected date of discharge: 06/06/21 Attending physician: Marty Chamberlain Consults: 06/05/21 11:27 Consult Physician Urgent Consulting Provider: Zuri Randolph Consult Reason/Comments: acute anemia Do you want consulting provider notified?: Already Contacted 06/06/21 13:25 Consult Physician Routine Consulting Provider: Leighton Hughes Consult Reason/Comments: Acute anemia, bone marrow eval Do you want consulting provider notified?: Yes Primary care physician: Physician Nonsta Hospital Course: Chief Complaint: Low hemoglobin This is a very pleasant 75-year-old patient, follows with . Chronic stable medical conditions include hypertension, hyperlipidemia, hypothyroid. Patient is fairly active. Patient had a six-month checkup with his family doctor and was told to come into the ER as his hemoglobin was 5.5. Patient does take a baby aspirin. He has been recently being feeling tired and getting easily short winded with activity. May 07 patient had a negative colonoscopy for Dr. Kervin Wilson only finding was that of a polyp and sigmoid diverticulosis. This had resulted following a positive occult blood test. Patient denies any reflux symptoms. Appetite is good. No weight loss. We do not have GI services in the hospital for [address] Aguirre was consulted from surgical team. Patient's son is at the bedside. June 06: Patient underwent EGD. Found to have grade B erosive esophagitis. That would not explain patient's symptoms related to hemoglobin. Spoke to Jourdan from GI. She will set up an outpatient small bowel capsule endoscopy. Patient is to go on for a week out of town and will be back. This was discussed with the patient and son. Discussion and discharge planning more than 35 minutes Consultation: Dr. Dixon from general surgery Past medical history to include: Hypertension, hyperlipidemia, hypothyroid Social history: Patient smoked a pack a day for 25 years. Stop in 2009. Alcohol occasionally. Son lives with him. Physical examination: VITAL SIGNS: 98.3, 68, 16, 1 43 x 58, GENERAL: BMI 29.3, sitting on edge of bed, awake. EYES: [Pupils equal. Conjunctiva pale. HEENT: External appearance of nose and ears normal, oral cavity grossly normal. NECK: JVD not raised; masses not palpable. HEART: First and second heart sounds are normal; no edema. LUNGS: Respiratory rate normal; clear to auscultation. ABDOMEN: Soft, nontender, liver spleen not palpable, no masses palpable. PSYCH: Alert and oriented x3; mood and affect normal. INVESTIGATIONS, reviewed in the clinical context: June 06: Hemoglobin 8.4 WBC 3.5 hemoglobin 5.3 MCV 104.4 platelets 213 Potassium 4.6 BUN 28 creatinine 0.9 UA: Negative Occult blood stools: Negative Coronavirus [PCR]: Not detected EKG tracing personally reviewed by me-normal sinus rhythm. Rate 81. Nonspecific ST segment changes. Chest x-ray film personally reviewed by me-borderline cardiomegaly. Some hyperinflation. Computed tomography scan of the abdomen and pelvis Small right pleural effusion. Prostate is markedly enlarged. Age indeterminate fracture of the L2. Car diomegaly with coronary artery calcification. Assessment and plan: -Severe anemia. Outpatient colonoscopy was unremarkable. EGD showed some esophagitis. Patient will have outpatient small bowel capsule study done. Received 2 units of blood. Asymptomatic sigmoid diverticulosis -Essential hypertension Norvasc 5 mg by mouth daily Vasotec 20 mg twice a day -Hyperlipidemia Mevacor 20 mg twice a day -Hypothyroid Synthroid 125 g daily Disposition: Home Patient Condition at Discharge: Stable Plan - Discharge Summary Discharge Rx Participant: No New Discharge Prescriptions: No Action amLODIPine [Norvasc] 5 mg PO QAM Multivitamins, Thera [Multivitamin (formulary)] 1 tab PO DAILY Lovastatin [Mevacor] 20 mg PO BID Levothyroxine Sodium [Synthroid] 125 mcg PO QAM Enalapril [Vasotec] 20 mg PO BID Aspirin [Adult Low Dose Aspirin EC] 81 mg PO DAILY Krill Oil 500 mg PO DAILY Glucos Sul 2Kcl/MSM/Chond/C/Mn [Glucosamine Chondroitin Cap] 1 each PO DAILY Discharge Medication List Aspirin [Adult Low Dose Aspirin EC] 81 mg PO DAILY 05/29/20 [History] Enalapril [Vasotec] 20 mg PO BID 05/29/20 [History] Levothyroxine Sodium [Synthroid] 125 mcg PO QAM 05/29/20 [History] Lovastatin [Mevacor] 20 mg PO BID 05/29/20 [History] Multivitamins, Thera [Multivitamin (formulary)] 1 tab PO DAILY 05/29/20 [History] amLODIPine [Norvasc] 5 mg PO QAM 05/29/20 [History] Glucos Sul 2Kcl/MSM/Chond/C/Mn [Glucosamine Chondroitin Cap] 1 each PO DAILY 04/24/21 [History] Krill Oil 500 mg PO DAILY 04/24/21 [History] Follow up Appointment(s)/Referral(s): Slim Santamaria MD [STAFF PHYSICIAN] - 1 Week (please call office to make appointment- office currently closed. tell them you were admitted to [facility] with anemia and had them consulted to see you. ) Nicky Wilson MD [STAFF PHYSICIAN] - 2 Weeks (please call office to make appointment. ) Chrissie Tipton PAC [REFERRING] - 1-2 Days (please call office to make appointment) Patient Instructions/Handouts: Anemia (DC) Activity/Diet/Wound Care/Special Instructions: cbc - 10 days Discharge Disposition: HOME SELF-CARE
== END 2021-06-06 18:46 | disposition home or self-care (01) | DRG 382 ==
LOC: EC 09:29 → 3SCARD 11:27
PROVIDERS: ADMIT Hospitalist; ATTEND Hospitalist
PROC: 30233N1 Transfusion of Nonautologous Red Blood Cells into Peripheral Vein, Percutaneous Approach (ICD-10-PCS; principal; 2021-06-05)
PROC: 0DB98ZX Excision of Duodenum, Via Natural or Artificial Opening Endoscopic, Diagnostic (ICD-10-PCS; 2021-06-06)
PROC: 0DB78ZX Excision of Stomach, Pylorus, Via Natural or Artificial Opening Endoscopic, Diagnostic (ICD-10-PCS; 2021-06-06)
DX: K22.10 Ulcer of esophagus without bleeding (principal); E03.9 Hypothyroidism, unspecified; E78.5 Hyperlipidemia, unspecified; D64.9 Anemia, unspecified; K57.30 Diverticulosis of large intestine without perforation or abscess without bleeding; J44.9 Chronic obstructive pulmonary disease, unspecified; Z79.890 Hormone replacement therapy; Z79.899 Other long term (current) drug therapy; Z87.891 Personal history of nicotine dependence; Z20.822 Contact with and (suspected) exposure to COVID-19; K44.9 Diaphragmatic hernia without obstruction or gangrene; D12.0 Benign neoplasm of cecum; I11.9 Hypertensive heart disease without heart failure; Z79.82 Long term (current) use of aspirin
CPT/HCPCS: 36415; 43239; 71046; 74177; 80053; 81003; 82272; 82607; 82728; 82746; 83540; 83550; 83605; 84484; 85025; 85027; 85610; 85730; 86850; 86900; 86901; 86920; 87635; 93005; 99285

== ENCOUNTER → 2021-07-09 | Day surgery (SDC) | payer MEDICARE ==
[~2021-07-09] MED LIST changes: -LACTATED RINGERS 1,000 ML IV SCH; -LIDOCAINE 1% (10MG/ML) FOR IV START INTRADERMA PRN; +SIMETHICONE 40 MG/0.6 ML DROPS 2,000 MG/30 ML BOTTLE PO ONE
[2021-07-09 07:05] VITALS: BP 163/73; PULSE 90; RESP 18; TEMP 97.8
== END ==
LOC: ORWHC2ENDO 06:51
PROVIDERS: ATTEND Internal Medicine Gastroenterology
DX: D64.9 Anemia, unspecified (principal)
CPT/HCPCS: 91110

== ENCOUNTER 2021-07-22 09:03 | Inpatient (IN) | payer MEDICARE ==
--- NOTE | 2021-07-22 09:36 | ED ---
General Adult HPI - General Chief complaint: Shortness of Breath Stated complaint: abn labs Time Seen by Provider: 07/22/21 09:12 Source: patient, family Mode of arrival: ambulatory Limitations: no limitations - History of Present Illness Initial comments: 75-year-old male with a past medical history of hyperlipidemia, hypertension presents to the emergency room for a chief complaint of low hemoglobin. Patient states he believes he has low hemoglobin as his symptoms are consistent the last time he was diagnosed with this. Patient states that for the past 3 days or so he has had some shortness of breath at worsens with movement. He has chest tig htness on and off. He states he had scopes done and they were not able to find a source of bleeding. He has an appointment with hematology next week.Patient has no other complaints at this time including shortness of breath, chest pain, abdominal pain, nausea or vomiting, headache, or visual changes. - Related Data Home Medications Medication Instructions Recorded Confirmed Aspirin [Adult Low Dose Aspirin EC] 81 mg PO DAILY 05/29/20 07/22/21 Enalapril [Vasotec] 20 mg PO BID 05/29/20 07/22/21 Levothyroxine Sodium [Synthroid] 125 mcg PO DAILY 05/29/20 07/22/21 Lovastatin [Mevacor] 20 mg PO BID 05/29/20 07/22/21 Multivitamins, Thera [Multivitamin 1 tab PO DAILY 05/29/20 07/22/21 (formulary)] amLODIPine [Norvasc] 5 mg PO DAILY 05/29/20 07/22/21 Glucos Sul 2Kcl/MSM/Chond/C/Mn 1 cap PO DAILY 04/24/21 07/22/21 [Glucosamine Chondroitin Cap] Krill Oil 500 mg PO DAILY 04/24/21 07/22/21 Ketorolac 0.5% Ophth Soln [Acular 1 drop LEFT EYE BID 07/22/21 07/22/21 0.5%] Moxifloxacin HCl [Moxifloxacin 1 drop LEFT EYE BID 07/22/21 07/22/21 0.5%] Allergies Allergy/AdvReac Type Severity Reaction Status Date / Time No Known Allergies Allergy Verified 07/22/21 10:43 Review of Systems ROS Statement: Those systems with pertinent positive or pertinent negative responses have been documented in the HPI. ROS Other: All systems not noted in ROS Statement are negative. Past Medical History Past Medical History: Hyperlipidemia, Hypertension, Thyroid Disorder History of Any Multi-Drug Resistant Organisms: None Reported Past Surgical History: Hernia Repair, Uterine Ablation Additional Past Surgical History / Comment(s): colonoscopy, cataract surgery Past Anesthesia/Blood Transfusion Reactions: No Reported Reaction Past Psychological History: No Psychological Hx Reported Smoking Status: Never smoker Past Alcohol Use History: Occasional Past Drug Use History: None Reported - Past Family History Mother Family Medical History: No Reported History General Exam Limitations: no limitations General appearance: alert, in no apparent distress Head exam: Present: atraumatic Eye exam: Present: normal appearance, PERRL, EOMI. Absent: scleral icterus, conjunctival injection ENT exam: Present: normal exam, mucous membranes moist Neck exam: Present: normal inspection, full ROM. Absent: tenderness Respiratory exam: Present: normal lung sounds bilaterally. Absent: respiratory distress, wheezes Cardiovascular Exam: Present: regular rate, normal rhythm, normal heart sounds Course Vital Signs 07/22/21 07/22/21 07/22/21 09:06 09:20 09:25 Temperature 99.0 F Pulse Rate 93 86 Respiratory 18 25 H 18 Rate Blood Pressure 121/67 O2 Sat by Pulse 98 Oximetry EKG Findings - EKG Comments: EKG Findings:: NSR, vent rate 91, pr int 140, qtc 457. rpt ek: NSR, vent rate 70, pr int 146. QTc 464. Medical Decision Making - Medical Decision Making She had a negative on June 06. Negative colonoscopy on May 07. He had a capsule endoscopy on July 09 which was negative as well. At that time recommending to consider iron supplements if he continues to be anemic. Vitals are stable. Patient is well-appearing. However he is found to be anemic with a hemoglobin of 5.8. As noted patient has had a capsule endoscopy and a colonoscopy in the past couple months without evidence of bleeding. CMP was unremarkable. Troponin 0.212, no evidence of ST elevation. case discussed with Dr. Chamberlain who does accept admission. Requests one unit of packed red blood cells be given. Cardiology will be consulted. Does request occult blood be obtained, aware GI consultation not available at this time. - Lab Data Result diagrams: 07/22/21 09:37 07/22/21 09:37 Lab Results 07/22/21 07/22/21 07/22/21 Range/Units 09:20 09:37 09:37 WBC 4.8 (3.8-10.6) k/uL RBC 1.77 L (4.30-5.90) m/uL Hgb 5.8 L* D (13.0-17.5) gm/dL Hct 17.1 L* (39.0-53.0) % MCV 96.9 (80.0-100.0) fL MCH 32.8 (25.0-35.0) pg MCHC 33.8 (31.0-37.0) g/dL RDW 22.3 H (11.5-15.5) % Plt Count 181 (150-450) k/uL MPV 11.6 Neutrophils % 58 % Lymphocytes % 33 % Monocytes % 4 % Eosinophils % 1 % Basophils % 1 % Neutrophils # 2.8 (1.3-7.7) k/uL Lymphocytes # 1.6 (1.0-4.8) k/uL Monocytes # 0.2 (0-1.0) k/uL Eosinophils # 0.1 (0-0.7) k/uL Basophils # 0.0 (0-0.2) k/uL Manual Slide Review Performed Large Platelets Present Poikilocytosis Slight Anisocytosis Moderate Macrocytosis Moderate PT 11.4 (9.0-12.0) sec INR 1.1 (<1.2) APTT 26.1 (22.0-30.0) sec Sodium (137-145) mmol/L Potassium (3.5-5.1) mmol/L Chloride (98-107) mmol/L Carbon Dioxide (22-30) mmol/L Anion Gap mmol/L BUN (9-20) mg/dL Creatinine (0.66-1.25) mg/dL Est GFR (CKD-EPI)AfAm (>60 ml/min/1.73 sqM) Est GFR (CKD-EPI)NonAf (>60 ml/min/1.73 sqM) Glucose (74-99) mg/dL Calcium (8.4-10.2) mg/dL Total Bilirubin (0.2-1.3) mg/dL AST (17-59) U/L ALT (4-49) U/L Alkaline Phosphatase (38-126) U/L Troponin I (0.000-0.034) ng/mL Total Protein (6.3-8.2) g/dL Albumin (3.5-5.0) g/dL Coronavirus (PCR) (Not Detectd) Blood Type A Positive Blood Type Recheck A Pos Bld Type Recheck Status No Antibody Screen NEGATIVE Crossmatch See Detail Spec Expiration Date 07/25/2021 - 231907/22/21 07/22/21 07/22/21 Range/Units 09:37 09:37 09:37 WBC (3.8-10.6) k/uL RBC (4.30-5.90) m/uL Hgb (13.0-17.5) gm/dL Hct (39.0-53.0) % MCV (80.0-100.0) fL MCH (25.0-35.0) pg MCHC (31.0-37.0) g/dL RDW (11.5-15.5) % Plt Count (150-450) k/uL MPV Neutrophils % % Lymphocytes % % Monocytes % % Eosinophils % % Basophils % % Neutrophils # (1.3-7.7) k/uL Lymphocytes # (1.0-4.8) k/uL Monocytes # (0-1.0) k/uL Eosinophils # (0-0.7) k/uL Basophils # (0-0.2) k/uL Manual Slide Review Large Platelets Poikilocytosis Anisocytosis Macrocytosis PT (9.0-12.0) sec INR (<1.2) APTT (22.0-30.0) sec Sodium 137 (137-145) mmol/L Potassium 4.3 (3.5-5.1) mmol/L Chloride 106 (98-107) mmol/L Carbon Dioxide 21 L (22-30) mmol/L Anion Gap 10 mmol/L BUN 18 (9-20) mg/dL Creatinine 0.87 (0.66-1.25) mg/dL Est GFR (CKD-EPI)AfAm >90 (>60 ml/min/1.73 sqM) Est GFR (CKD-EPI)NonAf 84 (>60 ml/min/1.73 sqM) Glucose 115 H (74-99) mg/dL Calcium 8.7 (8.4-10.2) mg/dL Total Bilirubin 0.8 (0.2-1.3) mg/dL AST 17 (17-59) U/L ALT 15 (4-49) U/L Alkaline Phosphatase 53 (38-126) U/L Troponin I 0.212 H* (0.000-0.034) ng/mL Total Protein 6.8 (6.3-8.2) g/dL Albumin 3.6 (3.5-5.0) g/dL Coronavirus (PCR) Not Detected (Not Detectd) Blood Type Blood Type Recheck Bld Type Recheck Status Antibody Screen Crossmatch Spec Expiration Date Disposition Clinical Impression: Anemia, Elevated troponin, Shortness of breath Disposition: ADMITTED IP TO THIS HOSP Is patient prescribed a controlled substance at d/c from ED?: No Referrals: Nathan Sewell DO [Primary Care Provider] - 1-2 days Time of Disposition: 11:18
--- NOTE | 2021-07-22 10:01 | XR ---
EXAMINATION TYPE: XR chest 2V DATE OF EXAM: 07/22/2021 COMPARISON: Chest x-ray June 05, 2021 HISTORY: Shortness of breath. Anemia. TECHNIQUE: Frontal and lateral views of the chest are obtained. FINDINGS: Diminished inspiration on current study. There is no no suspicious focal air space opacity, pleural effusion, or pneumothorax seen. The cardiac silhouette size is mildly enlarged. Multilevel spurring in thoracic spine redemonstrated. IMPRESSION: Mild cardiomegaly without new acute infiltrate.
[2021-07-22 10:09] LABS: ALT 15 U/L (4-49); AST 17 U/L (17-59); African American GFR (CKD) >90 (>60 ml/min/1.73 sqM); Albumin 3.6 g/dL (3.5-5.0); Alkaline Phosphatase 53 U/L (38-126); Anion Gap 10 mmol/L; Blood Urea Nitrogen 18 mg/dL (9-20); Calcium 8.7 mg/dL (8.4-10.2); Carbon Dioxide 21 mmol/L (22-30); Chloride 106 mmol/L (98-107); Glucose 115 mg/dL (74-99); Non-African American GFR(CKD) 84 (>60 ml/min/1.73 sqM); Potassium 4.3 mmol/L (3.5-5.1); Sodium 137 mmol/L (137-145); Total Bilirubin 0.8 mg/dL (0.2-1.3); Total Protein 6.8 g/dL (6.3-8.2)
[2021-07-22 10:11] LABS: INR 1.1 (<1.2); Partial Thromboplastin Time 26.1 sec (22.0-30.0); Prothrombin Time 11.4 sec (9.0-12.0)
[2021-07-22 10:29] LABS: Anisocytosis Moderate; Basophils % (A) 1 %; Eosinophils # (A) 0.1 k/uL (0-0.7); Eosinophils % (A) 1 %; Lymphocytes # (A) 1.6 k/uL (1.0-4.8); Lymphocytes % (A) 33 %; MCH 32.8 pg (25.0-35.0); MCHC 33.8 g/dL (31.0-37.0); MCV 96.9 fL (80.0-100.0); Macrocytosis Moderate; Mean Platelet Volume 11.6; Monocytes # (A) 0.2 k/uL (0-1.0); Monocytes % (A) 4 %; Neutrophils # (A) 2.8 k/uL (1.3-7.7); Neutrophils % (A) 58 %; Poikilocytosis Slight; RBC 1.77 m/uL (4.30-5.90); RDW 22.3 % (11.5-15.5); WBC 4.8 k/uL (3.8-10.6)
[2021-07-22 10:40] LABS: HCT 17.1 % (39.0-53.0); HGB 5.8 gm/dL (13.0-17.5)
[2021-07-22 10:59] LABS: Platelet Count 181 k/uL (150-450)
[2021-07-22 11:02] LABS: Large Platelets Present
[2021-07-22] MEDS ORDERED: NALOXONE 0.4 MG/ML 1 ML VIAL IV PRN (11:19)
--- NOTE | 2021-07-22 11:51 | P.HPIM ---
History of Present Illness H&P Date: 07/22/21 Chief Complaint: Weak and tired This is a very pleasant 75-year-old patient, follows with Dr. Sewell. Chronic stable medical conditions include hypertension, hyperlipidemia, hypothyroid. Tissues admitted here in May 2021: With hemoglobin was 5.5. May 07 patient had a negative colonoscopy for Dr. Kervin Wilson only finding was that of a polyp and sigmoid diverticulosis. This had resulted following a positive occult blood test. Dr. Dr. Aguirre : EGD. grade B erosive esophagitis. Outpatient small bowel capsule endoscopy [Dr. Kervin Wilson] was reportedly unremarkable Patient for last 4 days has been becoming short of breath with minimal exertion. No dizziness nor lightheadedness. Just get chest tightness occasionally with exertion. His stools have been brown. Denies any fever and chills. Patient did receive the COVID vaccine. Patient's hemoglobin was 8.4 on June 06. Today hemoglobin the ER is 5.8. Patient had an outpatient appointment with Dr. Santamaria from hematology. Patient is accompanied by his son. Patient's appetite is good. No weight loss. No GI symptoms. Review of systems: GEN.: Tired EYES: None HEENT: None NECK: None RESPIRATORY: None CARDIOVASCULAR: As above GASTROINTESTINAL: None GENITOURINARY: None MUSCULOSKELETAL: None LYMPHATICS: None HEMATOLOGICAL: None PSYCHIATRY: None NEUROLOGICAL: None Past medical history to include: Hypertension, hyperlipidemia, hypothyroid, anemia, esophagitis Social history: Patient smoked a pack a day for 25 years. Stopped in 2009. Alcohol occasionally. Son lives with him. Family history: Reviewed, noncontributory to presentation Physical examination: VITAL SIGNS: 99, 93, 18, 121/67, 98% room air GENERAL: BMI 28.5, sitting on edge of bed, awake. EYES: Pupils equal. Conjunctiva pale. HEENT: External appearance of nose and ears normal, oral cavity grossly normal. NECK: JVD not raised; masses not palpable. HEART: First and second heart sounds are normal; no edema. LUNGS: Respiratory rate normal; clear to auscultation. ABDOMEN: Soft, nontender, liver spleen not palpable, no masses palpable. PSYCH: Alert and oriented x3; mood and affect normal. NEUROLOGICAL: Cranial nerves grossly intact; no facial asymmetry, power and sensation grossly intact. LYMPHATICS: No lymph nodes palpable in the axilla and neck INVESTIGATIONS, reviewed in the clinical context: White count 4.8 hemoglobin 5.8 platelets 181 sodium 137 potassium 4.3 creatinine 0.87 Troponin I 0.212 albumin 3.6 Coronavirus [PCR]: Not detected EKG tracing personally reviewed by me-normal sinus rhythm. Some ST segment and T-wave changes. Chest x-ray film personally reviewed by me-cardiomegaly. No infiltrate. Previous testing: Hemoglobin 8.4 in May 2021 Computed tomography scan of the abdomen and pelvis Small right pleural effusion [May 2021]. Prostate is markedly enlarged. Age indeterminate fracture of the L2. Cardiomegaly with coronary artery calcification. Assessment and plan: -Severe symptomatic normocytic anemia. Previous colonoscopy was unremarkable. EGD showed some esophagitis. Outpatient Endoscopy Reportedly Negative. Transfuse 1 Unit of PRBC. Consult Hematology. Check Haptoglobin Ferritin. TIBC, iron -Asymptomatic sigmoid diverticulosis -Essential hypertension Vasotec 20 mg twice a day. Hold amlodipine -Hyperlipidemia Mevacor 20 mg twice a day -Hypothyroid Synthroid 125 g daily -Exertional chest pain. In a patient with significant anemia. Positive troponin. 2-D echocardiogram. Transfuse unit of blood. Consult cardiology. Telemetry. Telemetry. Transfuse 1 unit of blood. Consult cardiology and hematology. Resume home medications. Hold aspirin. Hold amlodipine. Blood pressure running on the lower side.. Check haptoglobin ferritin. Care was discussed with the patient and son at the bedside. We do not have GI service in the [facility] this week. Past Medical History Past Medical History: Hyperlipidemia, Hypertension, Thyroid Disorder History of Any Multi-Drug Resistant Organisms: None Reported Past Surgical History: Hernia Repair, Uterine Ablation Additional Past Surgical History / Comment(s): colonoscopy, cataract surgery Past Anesthesia/Blood Transfusion Reactions: No Reported Reaction Past Psychological History: No Psychological Hx Reported Smoking Status: Never smoker Past Alcohol Use History: Occasional Past Drug Use History: None Reported - Past Family History Mother Family Medical History: No Reported History Medications and Allergies Home Medications Medication Instructions Recorded Confirmed Type Aspirin [Adult Low Dose Aspirin EC] 81 mg PO DAILY 05/29/20 07/22/21 History Enalapril [Vasotec] 20 mg PO BID 05/29/20 07/22/21 History Levothyroxine Sodium [Synthroid] 125 mcg PO DAILY 05/29/20 07/22/21 History Lovastatin [Mevacor] 20 mg PO BID 05/29/20 07/22/21 History Multivitamins, Thera [Multivitamin 1 tab PO DAILY 05/29/20 07/22/21 History (formulary)] amLODIPine [Norvasc] 5 mg PO DAILY 05/29/20 07/22/21 History Glucos Sul 2Kcl/MSM/Chond/C/Mn 1 cap PO DAILY 04/24/21 07/22/21 History [Glucosamine Chondroitin Cap] Krill Oil 500 mg PO DAILY 04/24/21 07/22/21 History Ketorolac 0.5% Ophth Soln [Acular 1 drop LEFT EYE BID 07/22/21 07/22/21 History 0.5%] Moxifloxacin HCl [Moxifloxacin 1 drop LEFT EYE BID 07/22/21 07/22/21 History 0.5%] Allergies Allergy/AdvReac Type Severity Reaction Status Date / Time No Known Allergies Allergy Verified 07/22/21 10:43 Physical Exam Vitals: Vital Signs Temp Pulse Resp BP Pulse Ox 07/22/21 09:25 18 07/22/21 09:20 86 25 H 07/22/21 09:06 99.0 F 93 18 121/67 98 Intake and Output 07/21/21 07/22/21 07/22/21 22:59 06:59 14:59 Other: Weight 92.533 kg Results CBC & Chem 7: 07/22/21 09:37 07/22/21 09:37 Labs: Abnormal Lab Results - Last 24 Hours (Table) 07/22/21 07/22/21 07/22/21 Range/Units 09:20 09:37 09:37 RBC 1.77 L (4.30-5.90) m/uL Hgb 5.8 L* D (13.0-17.5) gm/dL Hct 17.1 L* (39.0-53.0) % RDW 22.3 H (11.5-15.5) % Carbon Dioxide 21 L (22-30) mmol/L Glucose 115 H (74-99) mg/dL Troponin I (0.000-0.034) ng/mL Crossmatch See Detail 07/22/21 Range/Units 09:37 RBC (4.30-5.90) m/uL Hgb (13.0-17.5) gm/dL Hct (39.0-53.0) % RDW (11.5-15.5) % Carbon Dioxide (22-30) mmol/L Glucose (74-99) mg/dL Troponin I 0.212 H* (0.000-0.034) ng/mL Crossmatch
--- NOTE | 2021-07-22 14:11 | P.CRDCN ---
History of Present Illness Consult date: 07/22/21 History of present illness: HISTORY OF PRESENT ILLNESS: This is a 75-year-old male with a past medical history significant for hypertension, hyperlipidemia, and anemia. Patient follows with a hand counter in [facility]. We have been asked to see the patient in consultation for elevated troponins. Patient examined at the bedside. Patient presented to the hospital with a chief complaint of shortness of breath since Thursday. He has a history of anemia and states his symptoms felt similiar to when he was here in May. He denies any chest pain or pressure. The patient was found to have a hemoglobin of 5.8. He is currently receiving RBC transfusion. Patient was admitted to the hospital in May 2021 secondary to anemia and underwent endoscopic evaluation with no clear-cut source of his bleeding. The patient denies having any bright red blood in his stools or black stools. Patient is not prescribed any anticoagulation outpatient basis. He does however take a baby aspirin daily. EKG reveals sinus mechanism with T wave inversions in inferior and lateral leads Chest xray mild cardiomegaly without new acute infiltrate Laboratory data: WBC 4.8. Hemoglobin 5.8. Platelets are 181. Sodium 137. Potassium 4.3. BUN 18. Creatinine 0.87. Troponin 0.212. ProBNP 2550. Current home cardiac medications include amlodipine 5 mg daily, lovastatin 20 mg twice a day, enalapril 20 mg twice a day, and aspirin 81 mg daily REVIEW OF SYSTEMS: At the time of my exam: CONSTITUTIONAL: Denies fever or chills. HEENT: Denies blurred vision, vision changes, or eye pain. Denies hemoptysis CARDIOVASCULAR: Denies chest pain. Denies orthopnea. Denies PND. Denies palpitations RESPIRATORY: + shortness of breath. GASTROINTESTINAL: Denies abdominal pain. Denies nausea or vomiting. HEMATOLOGIC: Denies bleeding disorders. GENITOURINARY: Denies any blood in urine. SKIN: Denies pruitis. Denies rash. PHYSICAL EXAM: VITAL SIGNS: Reviewed. GENERAL: Well-developed in no acute distress. HEENT: Head is normocephalic. Pupils are equal, round. Sclerae anicteric. Mucous membranes of the mouth are moist. Neck supple. No JVD or thyromegaly LUNGS: Respirations even and unlabored. Lungs essentially clear to auscultation bilaterally. HEART: Regular rate and rhythm. S1 and S2 heard. ABDOMEN: Soft. Nondistended. Nontender. EXTREMITIES: Normal range of motion. No clubbing or cyanosis. Peripheral pulses intact. No lower extremity edema NEUROLOGIC: Awake and alert. Oriented x 3. ASSESSMENT: Acute severe anemia, etiology unclear Abnormal troponins, secondary to severe anemia, not suggestive of acute coronary syndrome History of anemia with endoscopic evaluation in May 2021 Hypertension Hyperlipidemia PLAN: Obtain 2-D echo to assess cardiac structure and function Resume home cardiac medications Discontinue aspirin secondary to severe anemia Trend troponins Further recommendations pending patient's course Nurse practitioner note has been reviewed by physician. Signing provider agrees with the documented findings, assessment, and plan of care. Past Medical History Past Medical History: Hyperlipidemia, Hypertension, Thyroid Disorder History of Any Multi-Drug Resistant Organisms: None Reported Past Surgical History: Hernia Repair, Uterine Ablation Additional Past Surgical History / Comment(s): colonoscopy, cataract surgery Past Anesthesia/Blood Transfusion Reactions: No Reported Reaction Past Psychological History: No Psychological Hx Reported Smoking Status: Never smoker Past Alcohol Use History: Occasional Past Drug Use History: None Reported - Past Family History Mother Family Medical History: No Reported History Medications and Allergies Home Medications Medication Instructions Recorded Confirmed Type Aspirin [Adult Low Dose Aspirin EC] 81 mg PO DAILY 05/29/20 07/22/21 History Enalapril [Vasotec] 20 mg PO BID 05/29/20 07/22/21 History Levothyroxine Sodium [Synthroid] 125 mcg PO DAILY 05/29/20 07/22/21 History Lovastatin [Mevacor] 20 mg PO BID 05/29/20 07/22/21 History Multivitamins, Thera [Multivitamin 1 tab PO DAILY 05/29/20 07/22/21 History (formulary)] amLODIPine [Norvasc] 5 mg PO DAILY 05/29/20 07/22/21 History Glucos Sul 2Kcl/MSM/Chond/C/Mn 1 cap PO DAILY 04/24/21 07/22/21 History [Glucosamine Chondroitin Cap] Krill Oil 500 mg PO DAILY 04/24/21 07/22/21 History Ketorolac 0.5% Ophth Soln [Acular 1 drop LEFT EYE BID 07/22/21 07/22/21 History 0.5%] Moxifloxacin HCl [Moxifloxacin 1 drop LEFT EYE BID 07/22/21 07/22/21 History 0.5%] Allergies Allergy/AdvReac Type Severity Reaction Status Date / Time No Known Allergies Allergy Verified 07/22/21 10:43 Physical Exam Vitals: Vital Signs Temp Pulse Resp BP Pulse Ox 07/22/21 12:31 99.5 F 78 16 129/59 96 07/22/21 12:01 98.6 F 72 16 115/55 97 07/22/21 11:51 98.5 F 78 18 118/54 97 07/22/21 09:25 18 07/22/21 09:20 86 25 H 07/22/21 09:06 99.0 F 93 18 121/67 98 Intake and Output 07/21/21 07/22/21 07/22/21 22:59 06:59 14:59 Intake Total 0 Balance 0 Intake: Blood Product 0 Rc As-1 Unit 0 [id number] Other: Weight 92.533 kg Results 07/22/21 09:37 07/22/21 09:37 Cardiac Enzymes 07/22/21 07/22/21 Range/Units 09:37 09:37 AST 17 (17-59) U/L Troponin I 0.212 H* (0.000-0.034) ng/mL Coagulation 07/22/21 Range/Units 09:37 PT 11.4 (9.0-12.0) sec APTT 26.1 (22.0-30.0) sec CBC 07/22/21 Range/Units 09:37 WBC 4.8 (3.8-10.6) k/uL RBC 1.77 L (4.30-5.90) m/uL Hgb 5.8 L* D (13.0-17.5) gm/dL Hct 17.1 L* (39.0-53.0) % Plt Count 181 (150-450) k/uL Comprehensive Metabolic Panel 07/22/21 Range/Units 09:37 Sodium 137 (137-145) mmol/L Potassium 4.3 (3.5-5.1) mmol/L Chloride 106 (98-107) mmol/L Carbon Dioxide 21 L (22-30) mmol/L BUN 18 (9-20) mg/dL Creatinine 0.87 (0.66-1.25) mg/dL Glucose 115 H (74-99) mg/dL Calcium 8.7 (8.4-10.2) mg/dL AST 17 (17-59) U/L ALT 15 (4-49) U/L Alkaline Phosphatase 53 (38-126) U/L Total Protein 6.8 (6.3-8.2) g/dL Albumin 3.6 (3.5-5.0) g/dL Current Medications Generic Name Dose Route Start Last Admin Trade Name Freq PRN Reason Stop Dose Admin Atorvastatin Calcium 10 mg 07/22/21 21:00 Atorvastatin 10 Mg Tab PO HS [facility] Ketorolac Tromethamine 1 drops 07/22/21 21:00 Ketorolac 0.5% Ophth Drops 5 Ml Btl LEFT EYE BID [facility] Levothyroxine Sodium 125 mcg 07/23/21 06:30 Levothyroxine 125 Mcg Tab PO DAILY@0630 [facility] Lisinopril 40 mg 07/22/21 21:00 Lisinopril 20 Mg Tab PO BID [facility] Moxifloxacin HCl 1 drops 07/22/21 21:00 Moxifloxacin Hcl 0.5% Drops 3 Ml Btl LEFT EYE BID [facility] Multivitamins 1 each 07/23/21 09:00 Multivitamins, Thera 1 Each Tab PO DAILY [facility] Naloxone HCl 0.2 mg 07/22/21 11:19 Naloxone 0.4 Mg/Ml 1 Ml Vial IV Q2M PRN Opioid Reversal Intake and Output 07/21/21 07/22/21 07/22/21 22:59 06:59 14:59 Intake Total 0 Balance 0 Intake: Blood Product 0 Rc As-1 Unit 0 [id number] Other: Weight 92.533 kg Patient Weight 07/23/21 06:59 Weight 92.533 kg 07/22/21 09:37 07/22/21 09:37
--- NOTE | 2021-07-22 16:42 | ECHOF ---
Referral Reason:chest tightness MEASUREMENTS -------- HEIGHT: 180.3 cm WEIGHT: 92.5 kg BP: 121/67 IVSd: 1.4 cm (0.6 - 1.1) LVIDd: 5.0 cm (3.9 - 5.3) LVPWd: 1.4 cm (0.6 - 1.1) EDV(Teich): 117 ml IVSs: 2.0 cm LVIDs: 3.1 cm LVPWs: 1.8 cm %IVS Thck: 43 % ESV(Teich): 37 ml EF(Teich): 69 % %FS: 39 % SV(Teich): 80 ml LVOT Diam: 2.3 cm LA Diam: 4.2 cm (2.7 - 3.8) RVIDd: 3.7 cm (< 3.3) LALs A4C: 5.9 cm LAAs A4C: 21.0 cm LAESV A-L A4C: 64 ml LAESV MOD A4C: 57 ml LALs A2C: 6.1 cm LAAs A2C: 21.6 cm LAESV A-L A2C: 65 ml LAESV MOD A2C: 61 ml LAESV(A-L): 65 ml LAESV Index (A-L): 30.70 ml/m Ao Diam: 3.0 cm (2.0 - 3.7) AV Cusp: 2.2 cm (1.5 - 2.6) EPSS: 0.7 cm MV E Amol: 1.13 m/s MV DecT: 311 ms MV Dec Tensas: 3.6 m/s MV A Amol: 0.59 m/s MV E/A Ratio: 1.90 MV PHT: 90 ms LVOT Vmax: 0.94 m/s LVOT maxP.54 mmHg AV Vmax: 2.33 m/s AV maxP.80 mmHg DREW Vmax, Pt: 1.7 cm AV Vmax: 2.33 m/s AV Vmean: 1.54 m/s AV maxP.75 mmHg AV meanP.33 mmHg AV Env.Ti: 332 ms AV VTI: 51.1 cm DREW Vmax, Pt: 1.7 cm AR Vmax: 3.20 m/s AR maxP.08 mmHg AR PHT: 1040 ms AR Dec Time: 3587 ms AR Dec Tensas: 0.9 m/s TR Vmax: 3.44 m/s TR maxP.46 mmHg RAP: 5.00 mmHg RVSP: 52.46 mmHg MV EF SLOPE: 197.03 mm/s (70 - 150) MV EXCURSION: 21.52 mm (> 18.000) FINDINGS -------- Sinus rhythm. This was a technically adequate study. The left ventricular size is normal. There is moderate concentric left ventricular hypertrophy. O verall left ventricular systolic function is normal with, an EF between 55 - 60 %. The right ventricle is mild to moderately enlarged. LA is midly dilated 29-33ml/m2. The right atrium is normal in size. There is mild aortic valve sclerosis. There is mild aortic regurgitation. There is mild aortic st enosis present. Peak/mean gradient across the Aortic Valve is 21.75mmHg / 11.33mmHg. There is trace to mild mitral regurgitation. Moderate tricuspid regurgitation present. There is moderate pulmonary hypertension. The right iris tricular systolic pressure, as measured by Doppler, is 52.46mmHg. Trace/mild (physiologic) pulmonic regurgitation. The aortic root size is normal. There is no pericardial effusion. CONCLUSIONS -------- 1. The left ventricular size is normal. 2. There is moderate concentric left ventricular hypertrophy. 3. Overall left ventricular systolic function is normal with, an EF between 55 - 60 %. 4. The right ventricle is mild to moderately enlarged. 5. LA is midly dilated 29-33ml/m2. 6. There is mild aortic valve sclerosis. 7. There is mild aortic regurgitation. 8. There is mild aortic stenosis present. 9. Peak/mean gradient across the Aortic Valve is 21.75mmHg / 11.33mmHg. 10. There is trace to mild mitral regurgitation. 11. Moderate tricuspid regurgitation present. 12. There is moderate pulmonary hypertension. 13. The right ventricular systolic pressure, as measured by Doppler, is 52.46mmHg. 14. Trace/mild (physiologic) pulmonic regurgitation. 15. There is no pericardial effusion. CORRECTIONS CORPORAL: Deya Bernal RDCS
[2021-07-22] MEDS: KETOROLAC 0.5% OPHTH DROPS 5 ML BTL LEFT EYE SCH (21:07)
[2021-07-22] MEDS: MOXIFLOXACIN HCL 0.5% DROPS 3 ML BTL LEFT EYE SCH (21:07)
[2021-07-22] MEDS: ATORVASTATIN 10 MG TAB PO SCH (21:07)
[2021-07-22] MEDS: lisinopriL 20 MG TAB PO SCH (21:07)
[2021-07-22 21:41] LABS: Anisocytosis Moderate; MCH 32.8 pg (25.0-35.0); MCHC 34.3 g/dL (31.0-37.0); MCV 95.5 fL (80.0-100.0); Macrocytosis Moderate; Mean Platelet Volume 11.4; Poikilocytosis Slight; RBC 1.87 m/uL (4.30-5.90); WBC 3.5 k/uL (3.8-10.6)
[2021-07-22 21:43] LABS: HCT 17.8 % (39.0-53.0); HGB 6.1 gm/dL (13.0-17.5)
[2021-07-22 21:52] LABS: % Iron Saturation 36.55 (15.00-50.00)
[2021-07-22 22:06] LABS: Platelet Count 161 k/uL (150-450)
[2021-07-23] MEDS: LEVOTHYROXINE 125 MCG TAB PO SCH (05:49)
[2021-07-23 06:29] LABS: Anisocytosis Moderate; HCT 20.4 % (39.0-53.0); HGB 7.2 gm/dL (13.0-17.5); Hyperchromasia Slight; MCH 32.4 pg (25.0-35.0); MCHC 35.1 g/dL (31.0-37.0); MCV 92.1 fL (80.0-100.0); Macrocytosis Slight; Mean Platelet Volume 11.7; Platelet Count 141 k/uL (150-450); Poikilocytosis Slight; RBC 2.21 m/uL (4.30-5.90); RDW 20.9 % (11.5-15.5); WBC 3.6 k/uL (3.8-10.6)
[2021-07-23] MEDS ORDERED: NON FORMULARY DRUG (Krill Oil [Krill Oil] 500 MG Capsule) PO SCH (09:00)
[2021-07-23] MEDS ORDERED: amLODIPine 5 MG TAB PO SCH (09:00)
[2021-07-23] MEDS ORDERED: NON FORMULARY DRUG (Glucos Sul 2kcl/Msm/Chond/C/Mn [Glucosamine Chondroitin Cap] 1 EACH Ca PO SCH (09:00)
[2021-07-23 09:50] LABS: Eosinophils # (M) 0.07 k/uL (0-0.7); Lymphocytes # (M) 1.69 k/uL (1.0-4.8); Monocytes # (M) 0.36 k/uL (0-1.0); Neutrophils # (M) 1.48 k/uL (1.3-7.7); Neutrophils % (M) 41 %; Nucleated Red Blood Cells 1 /100 WBC (0-0); Total Cells Counted 100
[2021-07-23 09:51] LABS: Mixed Population RBC Present; Ovalocytes Present
[2021-07-23] MEDS: lisinopriL 20 MG TAB PO SCH ×2 (10:04→20:13)
[2021-07-23] MEDS: MOXIFLOXACIN HCL 0.5% DROPS 3 ML BTL LEFT EYE SCH ×2 (10:05→20:14)
[2021-07-23] MEDS: MULTIVITAMINS, THERA 1 EACH TAB PO SCH (10:05)
[2021-07-23] MEDS: KETOROLAC 0.5% OPHTH DROPS 5 ML BTL LEFT EYE SCH ×2 (10:05→20:13)
--- NOTE | 2021-07-23 10:08 | P.PN ---
Subjective Progress Note Date: 07/23/21 HISTORY OF PRESENT ILLNESS: This is a 75-year-old male with a past medical history significant for hypertension, hyperlipidemia, and anemia. Patient follows with a management coordinator in [facility]. We have been asked to see the patient in consultation for elevated troponins. Patient examined at the bedside. Patient presented to the hospital with a chief complaint of shortness of breath since Thursday. He has a history of anemia and states his symptoms felt similiar to when he was here in May. He denies any chest pain or pressure. The patient was found to have a hemoglobin of 5.8. He is currently receiving RBC transfusion. Patient was admitted to the hospital in May 2021 secondary to anemia and underwent endoscopic evaluation with no clear-cut source of his bleeding. The patient denies having any bright red blood in his stools or black stools. Patient is not prescribed any anticoagulation outpatient basis. He does however take a baby aspirin daily. EKG reveals sinus mechanism with T wave inversions in inferior and lateral leads Chest xray mild cardiomegaly without new acute infiltrate Laboratory data: WBC 4.8. Hemoglobin 5.8. Platelets are 181. Sodium 137. Potassium 4.3. BUN 18. Creatinine 0.87. Troponin 0.212. ProBNP 2550. Current home cardiac medications include amlodipine 5 mg daily, lovastatin 20 mg twice a day, enalapril 20 mg twice a day, and aspirin 81 mg daily 07/23/2021 Patient examined this morning at the bedside in the emergency room. He is s/p RBC transfusion. Hemoglobin this morning 7.2. The patient states he feels much better this morning. He denies chest pain or pressure. He denies shortness of breath. Echocardiogram completed revealed ejection fraction 55-60%, mild aortic regurgitation, mild aortic stenosis, moderate tricuspid regurgitation, and moderate pulmonary hypertension. PHYSICAL EXAM: VITAL SIGNS: Reviewed. GENERAL: Well-developed in no acute distress. HEENT: Head is normocephalic. Pupils are equal, round. Sclerae anicteric. Mucous membranes of the mouth are moist. Neck supple. No JVD or thyromegaly LUNGS: Respirations even and unlabored. Lungs essentially clear to auscultation bilaterally. HEART: Regular rate and rhythm. S1 and S2 heard. ABDOMEN: Soft. Nondistended. Nontender. EXTREMITIES: Normal range of motion. No clubbing or cyanosis. Peripheral pulses intact. No lower extremity edema NEUROLOGIC: Awake and alert. Oriented x 3. ASSESSMENT: Acute severe anemia, etiology unclear Abnormal troponins, secondary to severe anemia, not suggestive of acute coronary syndrome History of anemia with endoscopic evaluation in May 2021 Hypertension Hyperlipidemia PLAN: Continue current cardiac medications Defer anemia workup to internal medicine and hematology Stable from a cardiac standpoint We will sign off. Please reconsult if needed Nurse practitioner note has been reviewed by physician. Signing provider agrees with the documented findings, assessment, and plan of care. Objective - Vital Signs Vital signs: Vital Signs Temp 97.5 F L 07/23/21 03:42 Pulse 74 07/23/21 03:42 Resp 18 07/23/21 03:42 BP 118/62 07/23/21 03:42 Pulse Ox 95 07/23/21 03:42 Intake & Output 07/22/21 07/23/21 07/23/21 18:59 06:59 18:59 Intake Total 250 630 Balance 250 630 Weight 92.533 kg Intake: IV 10 0.9 10 Oral 250 Blood Product 0 620 Rc As-1 Unit 310 [id number] Rc As-1 Unit 0 [id number] Other: Voiding Method Toilet # Voids 1 - Labs CBC & Chem 7: 07/23/21 05:20 07/22/21 09:37 Labs: Abnormal Lab Results - Last 24 Hours (Table) 07/22/21 07/22/21 07/22/21 Range/Units 09:20 09:37 09:37 WBC (3.8-10.6) k/uL RBC 1.77 L (4.30-5.90) m/uL Hgb 5.8 L* D (13.0-17.5) gm/dL Hct 17.1 L* (39.0-53.0) % RDW 22.3 H (11.5-15.5) % Plt Count (150-450) k/uL Nucleated RBCs (0-0) /100 WBC Haptoglobin (31.2-198.0) mg/dL Carbon Dioxide 21 L (22-30) mmol/L Glucose 115 H (74-99) mg/dL TIBC (228-460) ug/dL Transferrin (204.0-354.0) mg/dL Ferritin (22.0-322.0) ng/mL Troponin I (0.000-0.034) ng/mL Crossmatch See Detail 07/22/21 07/22/21 07/22/21 Range/Units 09:37 10:58 10:58 WBC (3.8-10.6) k/uL RBC (4.30-5.90) m/uL Hgb (13.0-17.5) gm/dL Hct (39.0-53.0) % RDW (11.5-15.5) % Plt Count (150-450) k/uL Nucleated RBCs (0-0) /100 WBC Haptoglobin 333.0 H (31.2-198.0) mg/dL Carbon Dioxide (22-30) mmol/L Glucose (74-99) mg/dL TIBC (228-460) ug/dL Transferrin (204.0-354.0) mg/dL Ferritin 625.0 H (22.0-322.0) ng/mL Troponin I 0.212 H* (0.000-0.034) ng/mL Crossmatch 07/22/21 07/22/21 07/22/21 Range/Units 12:18 12:19 15:43 WBC (3.8-10.6) k/uL RBC (4.30-5.90) m/uL Hgb (13.0-17.5) gm/dL Hct (39.0-53.0) % RDW (11.5-15.5) % Plt Count (150-450) k/uL Nucleated RBCs (0-0) /100 WBC Haptoglobin (31.2-198.0) mg/dL Carbon Dioxide (22-30) mmol/L Glucose (74-99) mg/dL TIBC 216 L (228-460) ug/dL Transferrin 154.0 L (204.0-354.0) mg/dL Ferritin (22.0-322.0) ng/mL Troponin I 0.278 H* 0.274 H* (0.000-0.034) ng/mL Crossmatch 07/22/21 07/23/21 Range/Units 21:06 05:20 WBC 3.5 L 3.6 L (3.8-10.6) k/uL RBC 1.87 L 2.21 L (4.30-5.90) m/uL Hgb 6.1 L* 7.2 L (13.0-17.5) gm/dL Hct 17.8 L* 20.4 L (39.0-53.0) % RDW 22.0 H 20.9 H (11.5-15.5) % Plt Count 141 L (150-450) k/uL Nucleated RBCs 1 H (0-0) /100 WBC Haptoglobin (31.2-198.0) mg/dL Carbon Dioxide (22-30) mmol/L Glucose (74-99) mg/dL TIBC (228-460) ug/dL Transferrin (204.0-354.0) mg/dL Ferritin (22.0-322.0) ng/mL Troponin I (0.000-0.034) ng/mL Crossmatch
[2021-07-23 11:05] LABS: Reticulocyte % 1.4 % (0.5-2.0)
--- NOTE | 2021-07-23 14:45 | P.PN ---
Progress Note - Text Progress Note Date: 07/23/21 Chief Complaint: Weak and tired This is a very pleasant 75-year-old patient, follows with Dr. Sewell. Chronic stable medical conditions include hypertension, hyperlipidemia, hypothyroid. Tissues admitted here in May 2021: With hemoglobin was 5.5. May 07 patient had a negative colonoscopy for Dr. Kervin Wilson only finding was that of a polyp and sigmoid diverticulosis. This had resulted following a positive occult blood test. Dr. Dr. Aguirre : EGD. grade B erosive esophagitis. Outpatient small bowel capsule endoscopy [Dr. Kervin Wilson] was reportedly unremarkable Patient for last 4 days has been becoming short of breath with minimal exertion. No dizziness nor lightheadedness. Just get chest tightness occasionally with exertion. His stools have been brown. Denies any fever and chills. Patient did receive the COVID vaccine. Patient's hemoglobin was 8.4 on June 06. Today hemoglobin the ER is 5.8. Patient had an outpatient appointment with Dr. Santamaria from hematology. Patient is accompanied by his son. Patient's appetite is good. No weight loss. No GI symptoms. July 23: Patient received a total of 2 units of blood. Hemoglobin this morning 7.2. Patient started to ambulate. Feeling better. No GI bleed. Seen by cardiology. No further workup from them. No chest pain Review of systems: Was done for constitutional, cardiovascular, GI, pulmonary. relevant finding as above Active Medications Atorvastatin Calcium (Atorvastatin 10 Mg Tab) 10 mg PO HS [facility] Last Admin: 07/22/21 21:07 Dose: 10 mg Documented by: Ketorolac Tromethamine (Ketorolac 0.5% Ophth Drops 5 Ml Btl) 1 drops LEFT EYE BID [facility] Last Admin: 07/23/21 10:05 Dose: 1 drops Documented by: Levothyroxine Sodium (Levothyroxine 125 Mcg Tab) 125 mcg PO DAILY@0630 [facility] Last Admin: 07/23/21 05:49 Dose: 125 mcg Documented by: Lisinopril (Lisinopril 20 Mg Tab) 20 mg PO BID [facility] Moxifloxacin HCl (Moxifloxacin Hcl 0.5% Drops 3 Ml Btl) 1 drops LEFT EYE BID [facility] Last Admin: 07/23/21 10:05 Dose: 1 drops Documented by: Multivitamins (Multivitamins, Thera 1 Each Tab) 1 each PO DAILY [facility] Last Admin: 07/23/21 10:05 Dose: 1 each Documented by: Naloxone HCl (Naloxone 0.4 Mg/Ml 1 Ml Vial) 0.2 mg IV Q2M PRN PRN Reason: Opioid Reversal Past medical history to include: Hypertension, hyperlipidemia, hypothyroid, anemia, esophagitis Social history: Patient smoked a pack a day for 25 years. Stopped in 2009. Alcohol o ccasionally. Son lives with him. Family history: Reviewed, noncontributory to presentation Physical examination: VITAL SIGNS: 98.5, 61, 16, 120/71, 99% room air GENERAL: A ramon in bed, awake, comfortable EYES: Pupils equal. Conjunctiva pale. HEENT: External appearance of nose and ears normal, oral cavity grossly normal. NECK: JVD not raised; masses not palpable. HEART: First and second heart sounds are normal; no edema. LUNGS: Respiratory rate normal; clear to auscultation. ABDOMEN: Soft, nontender, liver spleen not palpable, no masses palpable. PSYCH: Alert and oriented x3; mood and affect normal. INVESTIGATIONS, reviewed in the clinical context: 2-D echocardiogram: Moderate concentric LVH. EF 55-60%. Moderate TR. Moderate pulmonary hypertension. July 23: White count 3.6 hemoglobin 7.2 platelets 141 White count 4.8 hemoglobin 5.8 platelets 181 sodium 137 potassium 4.3 creatinine 0.87 Troponin I 0.212 albumin 3.6 Coronavirus [PCR]: Not detected EKG tracing personally reviewed by me-normal sinus rhythm. Some ST segment and T-wave changes. Chest x-ray film personally reviewed by me-cardiomegaly. No infiltrate. Previous testing: Hemoglobin 8.4 in May 2021 Computed tomography scan of the abdomen and pelvis Small right pleural effusion [May 2021]. Prostate is markedly enlarged. Age indeterminate fracture of the L2. Cardiomegaly with coronary artery calcification. Assessment and plan: -Severe symptomatic normocytic anemia. Previous colonoscopy was unremarkable. EGD showed some esophagitis. Outpatient Endoscopy Reportedly Negative. Received 2 Unit of PRBC. Awaiting input from hematology -Secondary pulmonary hypertension, cause unclear: New diagnosis We will do a VQ scan to evaluate the same -Moderate tricuspid regurgitation -Hypertensive heart disease On Vasotec -Asymptomatic sigmoid diverticulosis -Essential hypertension Vasotec 20 mg twice a day. Hold amlodipine -Hyperlipidemia Mevacor 20 mg twice a day -Hypothyroid Synthroid 125 g daily -Exertional chest pain. In a patient with significant anemia. Positive troponin. 2-D echocardiogram. Transfuse unit of blood. Consult cardiology. Telemetry. Discussed with the patient and the son. Seen by Dr. santamaria from hematology earlier today. Awaiting suggestions. VQ scan. Repeat CBC this evening. If less than 7 and will transfuse another unit of blood
--- NOTE | 2021-07-23 16:15 | P.CONS ---
History of Present Illness - Reason for Consult Consult date: 07/23/21 Anemia Requesting physician: Song Dyer - Chief Complaint sob - History of Present Illness Mr. Max presented to hospital with hemoglobin of 5.8. In May of this year he was also admitted for unexplained anemia presenting at that time with hemoglobin of 5.3. GI work-up has not identified underlying cause. He is scheduled to see Dr. Santamaria next week in office for initial consultation, however with this admission we were asked to further evaluate. Normocytic anemia, Iron studies with low TIBC (consistent with possible inflammatory picture), Ferritin elevated 600s. No evidence of bleeding. This admission also with mild leukopenia and thrombocytopenia. Review of Systems All systems: negative Constitutional: Reports as per HPI Past Medical History Past Medical History: Hyperlipidemia, Hypertension, Thyroid Disorder History of Any Multi-Drug Resistant Organisms: None Reported Past Surgical History: Hernia Repair, Uterine Ablation Additional Past Surgical History / Comment(s): colonoscopy, cataract surgery Past Anesthesia/Blood Transfusion Reactions: No Reported Reaction Past Psychological History: No Psychological Hx Reported Smoking Status: Former smoker Past Alcohol Use History: Occasional Additional Past Alcohol Use History / Comment(s): quit 2009. 1PPD 25 YRS. Past Drug Use History: None Reported - Past Family History Mother Family Medical History: No Reported History Medications and Allergies Home Medications Medication Instructions Recorded Confirmed Type Aspirin [Adult Low Dose Aspirin EC] 81 mg PO DAILY 05/29/20 07/22/21 History Enalapril [Vasotec] 20 mg PO BID 05/29/20 07/22/21 History Levothyroxine Sodium [Synthroid] 125 mcg PO DAILY 05/29/20 07/22/21 History Lovastatin [Mevacor] 20 mg PO BID 05/29/20 07/22/21 History Multivitamins, Thera [Multivitamin 1 tab PO DAILY 05/29/20 07/22/21 History (formulary)] amLODIPine [Norvasc] 5 mg PO DAILY 05/29/20 07/22/21 History Glucos Sul 2Kcl/MSM/Chond/C/Mn 1 cap PO DAILY 04/24/21 07/22/21 History [Glucosamine Chondroitin Cap] Krill Oil 500 mg PO DAILY 04/24/21 07/22/21 History Ketorolac 0.5% Ophth Soln [Acular 1 drop LEFT EYE BID 07/22/21 07/22/21 History 0.5%] Moxifloxacin HCl [Moxifloxacin 1 drop LEFT EYE BID 07/22/21 07/22/21 History 0.5%] Allergies Allergy/AdvReac Type Severity Reaction Status Date / Time No Known Allergies Allergy Verified 07/22/21 10:43 Physical Exam Vitals: Vital Signs Temp Pulse Pulse Resp BP BP Pulse Ox 07/23/21 10:00 99.5 F 70 16 134/68 98 07/23/21 03:42 97.5 F L 74 18 118/62 95 07/23/21 01:46 69 18 07/23/21 01:36 99.8 F H 65 18 131/55 07/22/21 23:55 98.6 F 69 18 123/56 96 07/22/21 23:44 98.0 F 67 18 128/51 94 L 07/22/21 23:14 98.9 F 66 18 116/53 97 07/22/21 23:04 98.6 F 69 18 123/56 96 07/22/21 20:00 98.7 F 75 18 125/60 98 07/22/21 14:56 99.3 F 67 16 125/51 96 07/22/21 12:31 99.5 F 78 16 129/59 96 07/22/21 12:01 98.6 F 72 16 115/55 97 07/22/21 11:51 98.5 F 78 18 118/54 97 Intake and Output 07/22/21 07/23/21 07/23/21 22:59 06:59 14:59 Intake Total 260 620 Balance 260 620 Intake: IV 10 0.9 10 Oral 250 Blood Product 620 Rc As-1 Unit 310 [id number] Other: Voiding Method Toilet Toilet # Voids 1 1 Weight 92.533 kg NAD Head: NCAT Neck: Supple Lungs: Scattered Rhonchi Heart: RR Abd: SOft Ext: no edema - Constitutional General appearance: cooperative Results CBC & Chem 7: 07/23/21 05:20 07/22/21 09:37 Labs: Abnormal Lab Results - Last 24 Hours (Table) 07/22/21 07/22/21 07/22/21 Range/Units 09:20 10:58 10:58 WBC (3.8-10.6) k/uL RBC (4.30-5.90) m/uL Hgb (13.0-17.5) gm/dL Hct (39.0-53.0) % RDW (11.5-15.5) % Plt Count (150-450) k/uL Nucleated RBCs (0-0) /100 WBC Haptoglobin 333.0 H (31.2-198.0) mg/dL TIBC (228-460) ug/dL Transferrin (204.0-354.0) mg/dL Ferritin 625.0 H (22.0-322.0) ng/mL Troponin I (0.000-0.034) ng/mL Crossmatch See Detail 07/22/21 07/22/21 07/22/21 Range/Units 12:18 12:19 15:43 WBC (3.8-10.6) k/uL RBC (4.30-5.90) m/uL Hgb (13.0-17.5) gm/dL Hct (39.0-53.0) % RDW (11.5-15.5) % Plt Count (150-450) k/uL Nucleated RBCs (0-0) /100 WBC Haptoglobin (31.2-198.0) mg/dL TIBC 216 L (228-460) ug/dL Transferrin 154.0 L (204.0-354.0) mg/dL Ferritin (22.0-322.0) ng/mL Troponin I 0.278 H* 0.274 H* (0.000-0.034) ng/mL Crossmatch 07/22/21 07/23/21 Range/Units 21:06 05:20 WBC 3.5 L 3.6 L (3.8-10.6) k/uL RBC 1.87 L 2.21 L (4.30-5.90) m/uL Hgb 6.1 L* 7.2 L (13.0-17.5) gm/dL Hct 17.8 L* 20.4 L (39.0-53.0) % RDW 22.0 H 20.9 H (11.5-15.5) % Plt Count 141 L (150-450) k/uL Nucleated RBCs 1 H (0-0) /100 WBC Haptoglobin (31.2-198.0) mg/dL TIBC (228-460) ug/dL Transferrin (204.0-354.0) mg/dL Ferritin (22.0-322.0) ng/mL Troponin I (0.000-0.034) ng/mL Crossmatch CT scan - abdomen: report reviewed CT scan - pelvis: report reviewed Assessment and Plan (1) Normocytic anemia Current Visit: Yes Status: Acute Code(s): D64.9 - ANEMIA, UNSPECIFIED SNOMED Code(s): 891978179 Plan: Assessment and Recommendations: 1. Normocytic Anemia: - No identified bleeding - Further anemia work-up ordered and will be reviewed when redulted - Review of GI evaluation in April and May with out overt findings to be causing acute anemia - Medication review - CT abdomen and Pelis from May revealed lymph node or abnormality subcentimeter near pancreas, Ca 19-9 pending - Enlarged prostate identified and PSA will be checked as well Further recommendations once resulted Physician attest: I have completed the full history and physical and agre with above dication, dictated as a scribe
--- NOTE | 2021-07-23 17:08 | NM ---
EXAMINATION TYPE: NM pul vent and perfuse DATE OF EXAM: 07/23/2021 COMPARISON: NONE HISTORY: Weakness. Short of breath. TECHNIQUE: Utilizing inhalation of 64.7 mCi Tc 99m DTPA aerosol and intravenous injection of 4.9 mCi of Tc 99m MAA, ventilation and perfusion images are acquired post injection in multiple projections. FINDINGS: There is fairly uniform perfusion of both lungs. There is matching subsegmental defect in the superior segment left lower lobe. There is no segmental type defect. There is no ventilation/perfusion mismatch. IMPRESSION: Single matching defect in the superior segment left lower lobe. There is low probability of pulmonary embolism. This probably relates to airway disease.
[2021-07-23 18:17] LABS: Folate, Serum 14.3 ng/mL (4.40-31.00)
[2021-07-23 18:48] LABS: Anisocytosis Slight; Basophils % (A) 1 %; Eosinophils # (A) 0.1 k/uL (0-0.7); Eosinophils % (A) 2 %; HCT 23.2 % (39.0-53.0); HGB 7.9 gm/dL (13.0-17.5); Hypochromasia Slight; Lymphocytes # (A) 1.3 k/uL (1.0-4.8); Lymphocytes % (A) 36 %; MCH 32.8 pg (25.0-35.0); MCHC 34.1 g/dL (31.0-37.0); MCV 96.2 fL (80.0-100.0); Macrocytosis Slight; Monocytes # (A) 0.2 k/uL (0-1.0); Monocytes % (A) 6 %; Neutrophils # (A) 1.8 k/uL (1.3-7.7); Neutrophils % (A) 52 %; Platelet Count 173 k/uL (150-450); Poikilocytosis Slight; RBC 2.41 m/uL (4.30-5.90); RDW 19.9 % (11.5-15.5); WBC 3.5 k/uL (3.8-10.6)
[2021-07-23] MEDS: ATORVASTATIN 10 MG TAB PO SCH (20:13)
[2021-07-24] MEDS: LEVOTHYROXINE 125 MCG TAB PO SCH (06:14)
[2021-07-24 08:40] VITALS: RESP 16
[2021-07-24 09:30] LABS: Anisocytosis Slight; Basophils % (A) 1 %; Eosinophils % (A) 1 %; HCT 22.1 % (39.0-53.0); HGB 7.4 gm/dL (13.0-17.5); Hypochromasia Slight; Lymphocytes # (A) 1.2 k/uL (1.0-4.8); Lymphocytes % (A) 37 %; MCH 32.3 pg (25.0-35.0); MCHC 33.4 g/dL (31.0-37.0); MCV 96.6 fL (80.0-100.0); Macrocytosis Slight; Monocytes # (A) 0.2 k/uL (0-1.0); Monocytes % (A) 7 %; Neutrophils # (A) 1.7 k/uL (1.3-7.7); Neutrophils % (A) 52 %; Platelet Count 161 k/uL (150-450); Poikilocytosis Slight; RBC 2.29 m/uL (4.30-5.90); RDW 19.5 % (11.5-15.5); WBC 3.2 k/uL (3.8-10.6)
[2021-07-24] MEDS: lisinopriL 20 MG TAB PO SCH (09:56)
[2021-07-24] MEDS: MULTIVITAMINS, THERA 1 EACH TAB PO SCH (09:56)
[2021-07-24] MEDS: MOXIFLOXACIN HCL 0.5% DROPS 3 ML BTL LEFT EYE SCH (09:56)
[2021-07-24] MEDS: KETOROLAC 0.5% OPHTH DROPS 5 ML BTL LEFT EYE SCH (09:56)
[2021-07-24 10:44] VITALS: PULSE 78
[2021-07-24 13:54] LABS: Erythrocyte Sedimentation Rate 125 mm/hr (0-15)
[2021-07-24 14:15] VITALS: BP 142/63; TEMP 98.3
[2021-07-24 15:20] LABS: Albumin 3.07 g/dL (3.80-4.90); Gamma Globulin 1.02 g/dL (0.70-1.50)
--- NOTE | 2021-07-24 21:13 | P.DS ---
Providers Date of admission: 07/22/21 11:19 Expected date of discharge: 07/24/21 Attending physician: Marty Chamberlain Consults: 07/22/21 12:36 Consult Physician Routine Consulting Provider: Slim Santamaria Consult Reason/Comments: anemia Do you want consulting provider notified?: Yes Primary care physician: Nathan Sewell [facility] Course: Chief Complaint: Weak and tired This is a very pleasant 75-year-old patient, follows with Dr. Sewell. Chronic stable medical conditions include hypertension, hyperlipidemia, hypothyroid. Tissues admitted here in May 2021: With hemoglobin was 5.5. May 07 patient had a negative colonoscopy for Dr. Kervin Wilson only finding was that of a polyp and sigmoid diverticulosis. This had resulted following a positive occult blood test. Dr. Dr. Aguirre : EGD. grade B erosive esophagitis. Outpatient small bowel capsule endoscopy [Dr. Kervin Wlison] was reportedly unremarkable Patient for last 4 days has been becoming short of breath with minimal exertion. No dizziness nor lightheadedness. Just get chest tightness occasionally with exertion. His stools have been brown. Denies any fever and chills. Patient did receive the COVID vaccine. Patient's hemoglobin was 8.4 on June 06. Today hemoglobin the ER is 5.8. Patient had an outpatient appointment with Dr. Santamaria from hematology. Patient is accompanied by his son. Patient's appetite is good. No weight loss. No GI symptoms. July 23: Patient received a total of 2 units of blood. Hemoglobin this morning 7.2. Patient started to ambulate. Feeling better. No GI bleed. Seen by cardiology. No further workup from them. No chest pain July 24: Doing well. Hemoglobin 7.4. No chest pain or shortness of breath. Seen by hematology. Possible outpatient bone marrow. We'll also have the patient follow with Dr. Rosenbaum as outpatient. Discussed with the patient. Patient's found to have pulmonary hypertension on the 2-D echo. VQ scan was done. No chronic occlusive disease found. No further workup per cardiology. Discussion and discharge planning more than 35 minutes Consultation: Dr. Santamaria from [facility] Past medical history to include: Hypertension, hyperlipidemia, hypothyroid, anemia, esophagitis Social history: Patient smoked a pack a day for 25 years. Stopped in 2009. Alcohol occasionally. Son lives with him. Family history: Reviewed, noncontributory to presentation Physical examination: VITAL SIGNS: 98.3, 78, 16, 142/63, 99% room air GENERAL: Sitting up, awake, comfortable EYES: Pupils equal. Conjunctiva pale. HEENT: External appearance of nose and ears normal, oral cavity grossly normal. NECK: JVD not raised; masses not palpable. HEART: First and second heart sounds are normal; no edema. LUNGS: Respiratory rate normal; clear to auscultation. ABDOMEN: Soft, nontender, liver spleen not palpable, no masses palpable. PSYCH: Alert and oriented x3; mood and affect normal. INVESTIGATIONS, reviewed in the clinical context: Assembly ears: Hemoglobin 7.4 Rheumatoid factor less than 10, LG screen negative, TSH 0.083, free T4 1 0.5 mL in 19- antigen: 5, vitamin D 27.4 2-D echocardiogram: Moderate concentric LVH. EF 55-60%. Moderate TR. Moderate pulmonary hypertension. July 23: White count 3.6 hemoglobin 7.2 platelets 141 White count 4.8 hemoglobin 5.8 platelets 181 sodium 137 potassium 4.3 creatinine 0.87 Troponin I 0.212 albumin 3.6 Coronavirus [PCR]: Not detected EKG tracing personally reviewed by me-normal sinus rhythm. Some ST segment and T-wave changes. Chest x-ray film personally reviewed by me-cardiomegaly. No infiltrate. Previous testing: Hemoglobin 8.4 in May 2021 Computed tomography scan of the abdomen and pelvis Small right pleural effusion [May 2021]. Prostate is markedly enlarged. Age indeterminate fracture of the L2. Cardiomegaly with coronary artery calcification. Assessment and plan: -Severe symptomatic normocytic anemia. Previous colonoscopy was unremarkable. EGD showed some esophagitis. Outpatient Endoscopy Reportedly Negative. Received 2 Unit of PRBC. Outpatient bone marrow with hematology. And follow-up with Dr. Rosenbaum from GI outpatient -Secondary pulmonary hypertension, cause unclear: New diagnosis VQ scan unremarkable -Moderate tricuspid regurgitation Follow clinically -Hypertensive heart disease On Vasotec -Asymptomatic sigmoid diverticulosis -Essential hypertension Vasotec 20 mg twice a day. Hold amlodipine -Hyperlipidemia Mevacor 20 mg twice a day -Hypothyroid Synthroid 125 g daily -Exertional chest pain. In a patient with significant anemia. Positive troponin. Seen by cardiology. No further workup. Disposition: Home Plan - Discharge Summary Discharge Rx Participant: No New Discharge Prescriptions: Continue Multivitamins, Thera [Multivitamin (formulary)] 1 tab PO DAILY Lovastatin [Mevacor] 20 mg PO BID Levothyroxine Sodium [Synthroid] 125 mcg PO DAILY Enalapril [Vasotec] 20 mg PO BID Aspirin [Adult Low Dose Aspirin EC] 81 mg PO DAILY Krill Oil 500 mg PO DAILY Ketorolac 0.5% Ophth Soln [Acular 0.5%] 1 drop LEFT EYE BID Glucos Sul 2Kcl/MSM/Chond/C/Mn [Glucosamine Chondroitin Cap] 1 cap PO DAILY Moxifloxacin HCl [Moxifloxacin 0.5%] 1 drop LEFT EYE BID No Action amLODIPine [Norvasc] 5 mg PO DAILY Discharge Medication List Aspirin [Adult Low Dose Aspirin EC] 81 mg PO DAILY 05/29/20 [History] Enalapril [Vasotec] 20 mg PO BID 05/29/20 [History] Levothyroxine Sodium [Synthroid] 125 mcg PO DAILY 05/29/20 [History] Lovastatin [Mevacor] 20 mg PO BID 05/29/20 [History] Multivitamins, Thera [Multivitamin (formulary)] 1 tab PO DAILY 05/29/20 [History] amLODIPine [Norvasc] 5 mg PO DAILY 05/29/20 [History] Glucos Sul 2Kcl/MSM/Chond/C/Mn [Glucosamine Chondroitin Cap] 1 cap PO DAILY 04/24/21 [History] Krill Oil 500 mg PO DAILY 04/24/21 [History] Ketorolac 0.5% Ophth Soln [Acular 0.5%] 1 drop LEFT EYE BID 07/22/21 [History] Moxifloxacin HCl [Moxifloxacin 0.5%] 1 drop LEFT EYE BID 07/22/21 [History] Follow up Appointment(s)/Referral(s): Slim Santamaria MD [STAFF PHYSICIAN] - 07/31/21 4:15 pm Nathan Sewell DO [Primary Care Provider] - 07/26/21 11:45 am (Dr. Robles ) Nicky Wilson MD [STAFF PHYSICIAN] - 09/24/21 4:30 pm Discharge Disposition: HOME SELF-CARE
[2021-07-25 13:18] LABS: Free Kappa Lt Chain Qnt, Serum 5.08 mg/dL (0.33-1.94)
[2021-07-26 08:21] LABS: Methylmalonic Acid 0.19 umol/L (<0.40)
== END 2021-07-24 14:07 | disposition home or self-care (01) | DRG 812 ==
LOC: EC 09:03 → 3SCARD 11:19
PROVIDERS: ADMIT Hospitalist; ATTEND Hospitalist
PROC: 30233N1 Transfusion of Nonautologous Red Blood Cells into Peripheral Vein, Percutaneous Approach (ICD-10-PCS; principal; 2021-07-22)
DX: D64.9 Anemia, unspecified (principal); K22.10 Ulcer of esophagus without bleeding; D69.6 Thrombocytopenia, unspecified; I27.29 Other secondary pulmonary hypertension; I11.9 Hypertensive heart disease without heart failure; Z20.822 Contact with and (suspected) exposure to COVID-19; D72.819 Decreased white blood cell count, unspecified; K57.30 Diverticulosis of large intestine without perforation or abscess without bleeding; E78.5 Hyperlipidemia, unspecified; E03.9 Hypothyroidism, unspecified; I08.3 Combined rheumatic disorders of mitral, aortic and tricuspid valves; R77.8 Other specified abnormalities of plasma proteins; N40.0 Benign prostatic hyperplasia without lower urinary tract symptoms; Z79.82 Long term (current) use of aspirin; Z79.890 Hormone replacement therapy; Z79.899 Other long term (current) drug therapy; Z87.19 Personal history of other diseases of the digestive system; Z98.49 Cataract extraction status, unspecified eye; Z87.891 Personal history of nicotine dependence; Z98.890 Other specified postprocedural states
CPT/HCPCS: 36415; 71046; 78582; 80053; 82306; 82607; 82668; 82728; 82746; 82784; 83010; 83540; 83550; 83615; 83880; 83883; 83921; 84153; 84154; 84165; 84425; 84439; 84443; 84484; 85025; 85027; 85045; 85610; 85652; 85730; 86038; 86301; 86334; 86431; 86850; 86900; 86901; 86920; 87635; 93005; 93306; 94760; 99285

== ENCOUNTER 2024-01-08 14:01 | Emergency (ER) | payer MEDICARE ==
--- NOTE | 2024-01-08 14:09 | ED ---
Recheck HPI - General Source: patient, family, RN notes reviewed Mode of arrival: ambulatory Limitations: no limitations - History of Present Illness MD Complaint: abnormal lab <Kori Landa - Last Filed: 01/08/24 14:08> <Asif Harp - Last Filed: 01/08/24 20:52> - General Chief Complaint: Recheck/Abnormal Lab/Rx Stated Complaint: Abn labs Time Seen by Provider: 01/08/24 14:08 - History of Present Illness Initial Comments: Quick Note: This is a 78-year-old male who presents to the emergency department for abnormal lab work. Patient currently follows with Dr. Santamaria for anemia. He was instructed to come to the emergency department for abnormal lab work related to kidney and liver function. Patient states that he currently feels fine. (Kori Landa) Dictation was produced using [employer] dictation software. please excuse any grammatical, word or spelling errors. Chief Complaint: 78-year-old male presents emergency department from he matologist office for abnormal labs History of Present Illness: Patient 78-year-old male he has history of anemia. He sees a toll gate tender. He came in for 6-month checkup appointment. At the toll gate tender appointment he had blood drawn for that patient had significantly elevated bilirubin levels. Patient otherwise has no other complaints. The ROS documented in this emergency department record has been reviewed and confirmed by me. Those systems with pertinent positive or negative responses have been documented in the HPI. All other systems are other negative and/or noncontributory. (Asif Harp) - Related Data Home Medications Medication Instructions Recorded Confirmed Levothyroxine Sodium [Synthroid] 125 mcg PO DAILY 05/29/20 01/08/24 Lovastatin [Mevacor] 20 mg PO BID 05/29/20 01/08/24 amLODIPine [Norvasc] 5 mg PO DAILY 05/29/20 01/08/24 Allergies Allergy/AdvReac Type Severity Reaction Status Date / Time No Known Allergies Allergy Verified 01/08/24 18:06 Review of Systems ROS Other: All systems not noted in ROS Statement are negative. <Kori Landa - Last Filed: 01/08/24 14:08> ROS Other: All systems not noted in ROS Statement are negative. <Asif Harp - Last Filed: 01/08/24 20:52> ROS Statement: Those systems with pertinent positive or pertinent negative responses have been documented in the HPI. Past Medical History Past Medical History: Blood Disorder, Hyperlipidemia, Hypertension, Thyroid Disorder Additional Past Medical History / Comment(s): ANEMIA D/T BONE MARROW PROBLEM. FREQUENT BLOOD TRANSFUSIONS. History of Any Multi-Drug Resistant Organisms: None Reported Past Surgical History: Hernia Repair, Uterine Ablation Additional Past Surgical History / Comment(s): colonoscopy, cataract surgery Past Anesthesia/Blood Transfusion Reactions: No Reported Reaction Smoking Status: Former smoker - Past Family History Mother Family Medical History: No Reported History <Kori Landa - Last Filed: 01/08/24 14:08> General Exam <Kori Landa - Last Filed: 01/08/24 14:08> <Asif Harp - Last Filed: 01/08/24 20:52> - General Exam Comments Initial Comments: Visual Physical Exam Vital signs reviewed General: Well-appearing, nontoxic, no acute distress. Head: Normocephalic, atraumatic Eyes: PERRLA, EOMI ENT: Airway patent Chest: Nonlabored breathing Skin: No visual rash, normal skin tone Neuro: Alert and oriented 3 Musculoskeletal: No gross abnormalities (Kori Landa) PHYSICAL EXAM: General Impression: Alert and oriented x3, not in acute distress, jaundiced HEENT: Normocephalic atraumatic, extra-ocular movements intact, pupils equal and reactive to light bilaterally, mucous membranes moist, scleral icterus Cardiovascular: Heart regular rate and rhythm Chest: Able to complete full sentences, no retractions, no tachypnea Abdomen: abdomen soft, non-tender, non-distended, no organomegaly Musculoskeletal: Pulses present and equal in all extremities, no peripheral edema Motor: no focal deficits noted Neurological: CN II-XII grossly intact, no focal motor or sensory deficits noted Skin: Intact with no visualized rashes Psych: Normal affect and mood (Asif Harp) Course <Asif Harp - Last Filed: 01/08/24 20:52> Vital Signs 01/08/24 01/08/24 01/08/24 14:15 15:58 16:00 Temperature 98.1 F Pulse Rate 54 L 44 L 48 L Respiratory 18 18 20 Rate Blood Pressure 162/75 161/68 161/68 O2 Sat by Pulse 98 98 98 Oximetry 01/08/24 17:00 Temperature Pulse Rate 50 L Respiratory 20 Rate Blood Pressure 120/60 O2 Sat by Pulse 98 Oximetry - Reevaluation(s) Reevaluation #1: 01/08/24 18:[address] Chen GI specialist at [facility]. We are requesting transfer however Dr. 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 Case discussed with Dr. Venegas at [facility] is willing to accept patient care for transfer. (Asif Harp) Medical Decision Making <Kori Landa - Last Filed: 01/08/24 14:08> - Lab Data Result diagrams: 01/08/24 14:26 01/08/24 14:26 <Asif Harp - Last Filed: 01/08/24 20:52> - Medical Decision Making I performed the QuickNote portion of this chart. Signed Kori Landa PA-C. (Kori Landa) Was pt. sent in by a medical professional or institution ([facility]ELISA [employer]ails, [employer], urgent care, hospital, or detention...) When possible be specific @ -No Did you speak to anyone other than the patient for history (EMS, parent, family, police, friend...)? What history was obtained from this source @ -No Did you review nursing and triage notes (agree or disagree)? Why? @ -I reviewed and agree with nursing and triage notes Were old charts reviewed (outside hosp., previous admission, EMS record, old EKG, old radiological studies, urgent care reports/EKG's, detention records)? Report findings @ -No old charts were reviewed Differential Diagnosis (chest pain, altered mental status, abdominal pain women, abdominal pain men, vaginal bleeding, musculoskeletal, weakness, fever, dyspnea, syncope, headache, dizziness, GI bleed, back pain, seizure, CVA, palpatations, mental health)? @ -Liver cancer, hepatitis, biliary obstruction EKG interpreted by me (3pts min.). @ -None done X-rays interpreted by me (1pt min.). @ -None done CT interpreted by me (1pt min.). @ -CT shows prominence at the pancreas U/S interpreted by me (1pt. min.). @ -None done What testing was considered but not performed or refused? (CT, X-rays, U/S, labs)? Why? @ -None What meds were considered but not given or refused? Why? @ -None Did you discuss the management of the patient with other professionals (professionals i.e. Dr., PA, [employer]IST, lab, RT, psych nurse, mental health social worker, family consultant, teacher, legal officer, nurse outreach case manager)? Give summary @ -See above Was smoking cessation discussed for >3mins.? @ -No Was critical care preformed (if so, how long)? @ -No Were there social determinants of health that impacted care today? How? (Homelessness, low income, unemployed, alcoholism, drug addiction, transportation, low edu. Level, literacy, decrease access to med. care, long-term, rehab)? @ -No Was there de-escalation of care discussed even if they declined (Discuss DNR or withdrawal of care, Hospice)? DNR status @ -No What co-morbidities impacted this encounter? (DM, HTN, Smoking, COPD, CAD, Cancer, CVA, ARF, Chemo, Hep., AIDS, mental health diagnosis, sleep apnea, morbid obesity)? @ -None Was patient admitted / discharged? Hospital course, mention meds given and route, prescriptions, significant lab abnormalities, going to OR and other pertinent info. @ -78-year-old male presents emergency department for painless jaundice. Vital signs upon arrival are within acceptable limits. Physical examination shows well-appearing jaundice male with no acute distress. Patient be transferred to [facility] per request by GI specialist at [facility], Dr. Chen. Bilirubin levels 12.5. Patient will be boarding in our emergency department until [facility] has available bed. Undiagnosed new problem with uncertain prognosis? @ -No Drug Therapy requiring intensive monitoring for toxicity (Heparin, Nitro, Insulin, Cardizem)? @ -No Were any procedures done? @ -No Diagnosis/symptom? Acute, or Chronic, or Acute on Chronic? Uncomplicated ( without systemic symptoms) or Complicated (systemic symptoms)? @ -Painless jaundice Side effects of treatment? @ -No Exacerbation, Progression, or Severe Exacerbation? @ -No Poses a threat to life or bodily function? How? (Chest pain, USA, OR, pneumonia, PE, COPD, DKA, ARF, appy, cholecystitis, CVA, Diverticulitis, Homicidal, Suicidal, threat to staff... and all critical care pts) @ -yes (Asif Harp) - Lab Data Lab Results 01/08/24 01/08/24 Range/Units 14:26 14:26 WBC 6.4 (3.8-10.6) k/uL RBC 4.81 (4.30-5.90) m/uL Hgb 13.6 (13.0-17.5) gm/dL Hct 42.0 (39.0-53.0) % MCV 87.4 (80.0-100.0) fL MCH 28.3 (25.0-35.0) pg MCHC 32.3 (31.0-37.0) g/dL RDW 18.1 H (11.5-15.5) % Plt Count 280 (150-450) k/uL MPV 9.2 Neutrophils % (Manual) 55 % Lymphocytes % (Manual) 33 % Monocytes % (Manual) 9 % Eosinophils % (Manual) 3 % Neutrophils # (Manual) 3.52 (1.3-7.7) k/uL Lymphocytes # (Manual) 2.11 (1.0-4.8) k/uL Monocytes # (Manual) 0.58 (0-1.0) k/uL Eosinophils # (Manual) 0.19 (0-0.7) k/uL Nucleated RBCs 0 (0-0) /100 WBC Manual Slide Review Performed Poikilocytosis (manual Present Anisocytosis Slight Sodium 139 (137-145) mmol/L Potassium 3.2 L (3.5-5.1) mmol/L Chloride 104 (98-107) mmol/L Carbon Dioxide 27 (22-30) mmol/L Anion Gap 8 mmol/L BUN 14 (9-20) mg/dL Creatinine 1.11 (0.66-1.25) mg/dL Est GFR (CKD-EPI)AfAm 73 (>60 ml/min/1.73 sqM) Est GFR (CKD-EPI)NonAf 63 (>60 ml/min/1.73 sqM) Glucose 111 H (74-99) mg/dL Calcium 8.3 L (8.4-10.2) mg/dL Total Bilirubin 12.5 H (0.2-1.3) mg/dL Conjugated Bilirubin 6.6 H (0.0-0.3) mg/dL Unconjugated Bilirubin 2.0 H (0.0-1.1) mg/dL Delta Bilirubin 3.9 H (0.0-0.2) mg/dL AST 160 H (17-59) U/L ALT 208 H (4-49) U/L Alkaline Phosphatase 631 H (38-126) U/L Total Protein 7.9 (6.3-8.2) g/dL Albumin 3.6 (3.5-5.0) g/dL Amylase 59 (30-110) U/L Lipase 222 (23-300) U/L Disposition <Kori Landa - Last Filed: 01/08/24 14:08> Time of Disposition: 18:19 - Out of Hospital Transfer - Req. Specs Out of Hospital Transfer - Requested Specifics: Other Emergency Center ([facility]) <Asif Harp - Last Filed: 01/08/24 20:52> Clinical Impression: Jaundice Disposition: OTHER INSTITUTION NOT DEFINED Condition: Serious Referrals: Nathan Sewell DO [Primary Care Provider] - 1-2 days
[2024-01-08 14:58] VITALS: TEMP 98.1
[2024-01-08 15:05] LABS: Anisocytosis Slight; HGB 13.6 gm/dL (13.0-17.5); MCH 28.3 pg (25.0-35.0); MCHC 32.3 g/dL (31.0-37.0); MCV 87.4 fL (80.0-100.0); Mean Platelet Volume 9.2; Platelet Count 280 k/uL (150-450); RBC 4.81 m/uL (4.30-5.90); RDW 18.1 % (11.5-15.5); WBC 6.4 k/uL (3.8-10.6)
[2024-01-08 15:09] LABS: ALT 208 U/L (4-49); AST 160 U/L (17-59); African American GFR (CKD) 73 (>60 ml/min/1.73 sqM); Albumin 3.6 g/dL (3.5-5.0); Alkaline Phosphatase 631 U/L (38-126); Amylase 59 U/L (30-110); Anion Gap 8 mmol/L; Bilirubin, Conjugated 6.6 mg/dL (0.0-0.3); Bilirubin, Delta 3.9 mg/dL (0.0-0.2); Blood Urea Nitrogen 14 mg/dL (9-20); Calcium 8.3 mg/dL (8.4-10.2); Carbon Dioxide 27 mmol/L (22-30); Chloride 104 mmol/L (98-107); Glucose 111 mg/dL (74-99); Lipase 222 U/L (23-300); Non-African American GFR(CKD) 63 (>60 ml/min/1.73 sqM); Potassium 3.2 mmol/L (3.5-5.1); Sodium 139 mmol/L (137-145); Total Bilirubin 12.5 mg/dL (0.2-1.3); Total Protein 7.9 g/dL (6.3-8.2)
[2024-01-08 15:47] LABS: Eosinophils # (M) 0.19 k/uL (0-0.7); Lymphocytes # (M) 2.11 k/uL (1.0-4.8); Monocytes # (M) 0.58 k/uL (0-1.0); Neutrophils # (M) 3.52 k/uL (1.3-7.7); Neutrophils % (M) 55 %; Nucleated Red Blood Cells 0 /100 WBC (0-0); Total Cells Counted 100
[2024-01-08 15:48] LABS: Poikilocytosis (M) Present
--- NOTE | 2024-01-08 17:18 | CT ---
EXAMINATION TYPE: CT abdomen pelvis w con DATE OF EXAM: 01/08/2024 COMPARISON: 06/05/2021 INDICATION: elevated liver enzymes DLP: 1200 mGycm, Automated exposure control for dose reduction was used. CONTRAST: 100 ml mL of Isovue 300. Study performed without Oral Contrast TECHNIQUE: Axial images were obtained from above the diaphragm to the pubic rami in the axial plane a t 5 mm thick sections. Reconstructed images are reviewed on the computer in the coronal plane. FINDINGS: Limited CT sections are obtained the lung bases. There is a small right pleural effusion. Some adjac ent impressive atelectasis is within the dependent lung bases.. CT ABDOMEN: Liver: There is some mild biliary prominence hepatic liver. Spleen: Normal Pancreas: Atrophic. No calcifications at the head of the pancreas. However, note is made of dilated t o the pancreas duct 0.5 cm. Normal less than 0.1 cm. Consider follow-up with MRCP or ERCP Adrenal glands: The adrenal glands are normal. Gallbladder: Gallbladder may be distended. No: Assess gallbladder wall thickening or pericholecystic fluid is identified. Common bile duct may be prominent 1.8 cm. Kidneys: No masses are evident. No hydronephrosis is present. There is a 1.6 cm cyst in the superio r medial left kidney. Delayed images were obtained through the kidneys, which remain unremarkable. Aorta: Vascular calcification is within the aorta. Inferior vena cava: Normal. CT PELVIS: Loops of bowel within the abdomen and pelvis are normal. Fluid-filled small bowel loops are borde rline prominent. Correlate for ileus. Appendix: Normal as visualized. Urinary bladder: Normal. Genitourinary structures: Prostate is prominent. Osseous structures: No suspicious lytic or sclerotic lesions. Degenerative disc changes lower lumbar spine. IMPRESSION: 1. Pancreatic duct especially within the body and tail of pancreas is prominent and the common bile duct appears prominent. Consider additional evaluation for abnormality at the level of the head of th e pancreas MRCP or ERCP may be useful. Some biliary dilatation within the liver is present. 2. Fluid-filled small bowel loops. Consider ileus. 3. Prominent prostate. 4. Small right pleural effusion with adjacent compressive atelectasis.
[2024-01-08 23:15] VITALS: RESP 18
[2024-01-09 02:14] VITALS: BP 150/97; PULSE 58
== END 2024-01-09 01:28 | disposition other institution (70) ==
LOC: EC 14:01
DX: R17 Unspecified jaundice (principal); Z87.891 Personal history of nicotine dependence
CPT/HCPCS: 36415; 80053; 82150; 82248; 83690; 85025; 74177; 99285; Q9967

== ENCOUNTER 2024-05-02 07:50 | Day surgery (SDC) | payer MEDICARE ==
[2024-04-29 11:10] VITALS: BMI 24.8
[~2024-05-02 07:50] MED LIST changes: +HYDROmorphone 0.5 MG/0.5 ML SYRINGE IVP PRN; +Pre Op ABX Message 1 EACH MISC MISCELLANE ONE; -SIMETHICONE 40 MG/0.6 ML DROPS 2,000 MG/30 ML BOTTLE PO ONE
[2024-05-02 08:21] VITALS: TEMP 98
[2024-05-02] MEDS: ACETAMINOPHEN TAB 500 MG TAB PO PRN (08:42)
[2024-05-02] MEDS: ONDANSETRON 4 MG/2 ML VIAL IVP ONE (08:43)
[2024-05-02] MEDS: DEXAMETHASONE SOD PHOSPHATE 4 MG/ML 1 ML VIAL IVP STA (08:44)
[2024-05-02] MEDS: IV FLUID CONTINUATION 1,000 ML IV ONE (08:55)
[2024-05-02] MEDS: LACTATED RINGERS 1,000 ML IV SCH (09:09)
[2024-05-02] MEDS: HEPARIN SODIUM,PORCINE 5,000 UNIT/ML 1 ML VIAL SQ PRN (09:10)
--- NOTE | 2024-05-02 09:53 | P.GSHP ---
History of Present Illness H&P Date: 05/02/24 Chief Complaint: Pancreatic cancer This is a 78-year-old male recently diagnosed with pancreatic cancer. Patient presents today for Port-A-Cath placement. Past Medical History Past Medical History: Blood Disorder, Cancer, Hyperlipidemia, Hypertension, Thyroid Disorder Additional Past Medical History / Comment(s): Pancreatic cancer. ANEMIA D/T BONE MARROW PROBLEM. History of Any Multi-Drug Resistant Organisms: None Reported Past Surgical History: Hernia Repair Additional Past Surgical History / Comment(s): Colonoscopy, cataract surgery, surgery for pancreatic cancer 4-5 weeks ago. Past Anesthesia/Blood Transfusion Reactions: No Reported Reaction Smoking Status: Former smoker - Past Family History Mother Family Medical History: No Reported History Medications and Allergies Home Medications Medication Instructions Recorded Confirmed Type Levothyroxine Sodium [Synthroid] 125 mcg PO QAM 05/29/20 04/29/24 History Lovastatin [Mevacor] 20 mg PO BID 05/29/20 04/29/24 History amLODIPine [Norvasc] 5 mg PO QAM 05/29/20 04/29/24 History Allergies Allergy/AdvReac Type Severity Reaction Status Date / Time No Known Allergies Allergy Verified 05/02/24 08:21 Surgical - Exam Vital Signs Temp Pulse Resp BP Pulse Ox 98 F 69 14 180/80 99 05/02/24 08:18 05/02/24 08:18 05/02/24 08:18 05/02/24 08:18 05/02/24 08:18 - General well developed, well nourished, no distress - Eyes PERRL - ENT normal pinna - Neck no masses - Respiratory normal expansion - Cardiovascular Rhythm: regular - Abdomen Abdomen: soft, non tender Assessment and Plan Assessment: History of pancreatic cancer. Will perform Port-A-Cath placement.
[2024-05-02] MEDS ORDERED: ceFAZolin 1 GM/50 ML BAG (PMX) ONE (10:18)
[2024-05-02] MEDS ORDERED: MIDAZOLAM 2 MG/2 ML VIAL ONE (10:18)
[2024-05-02] MEDS ORDERED: fentaNYL (PF) 50 MCG/ML 2 ML AMP ONE (10:18)
[2024-05-02] MEDS ORDERED: LIDOCAINE 1% INJ 10MG/ML (20 ML MDV) ONE (10:18)
[2024-05-02] MEDS ORDERED: PROPOFOL 10 MG/ML 20 ML VIAL IV ONE (10:18)
[2024-05-02] MEDS: SODIUM CHLORIDE 0.9% 50 ML with ceFAZolin 2,000 MG IV ONE (10:18)
[2024-05-02] MEDS: LIDOCAINE 1%-EPI 1:100,000 20 ML VIAL SQ ONE ×2 (10:40)
--- NOTE | 2024-05-02 11:00 | P.OP ---
Date of Procedure: 05/02/24 Preoperative Diagnosis: pancreatic cancer Postoperative Diagnosis: Pancreatic cancer Procedure(s) Performed: Insertion of right subclavian 6 Thai Port-A-Cath Anesthesia: SAI Surgeon: Kvng Dixon Estimated Blood Loss (ml): 5 Pathology: none sent Condition: stable Disposition: PACU Description of Procedure: The patient was placed on the operating table in the supine position. The patient received IV sedation. The patient's chest was prepped and draped in the usual sterile fashion. A roll had been placed between the shoulder blades in a longitudinal fashion. After prepping and draping the skin was anesthetized 1% local Xylocaine. And then using the Seldinger technique the subclavian vein was cannulated. A wire was placed into the vein and fluoroscopy position the wire at the atrial caval junction. Next the dilator sheath was placed over top the wire and the wire was withdrawn. The catheter was positioned at the atriocaval position. The catheter was placed through the sheath after the dilator was withdrawn. The sheath was then withdrawn. Position of the catheter was confirmed with fluoroscopy. The Port-A-Cath was connected to the catheter. The Port-A-Cath was flushed with saline and then heparinized saline. The skin was closed interrupted 3-0 Monocryl suture. Dermabond was applied. Patient tolerated procedure well and was sent to recovery room stable condition.
[2024-05-02 11:03] VITALS: RESP 16
--- NOTE | 2024-05-02 11:22 | FL ---
EXAMINATION TYPE: FL guided central line placement DATE OF EXAM: 05/02/2024 FLUOROSCOPY port placement. One image provided. 3 SEC FL .1208 DAP [facility], , 05/02/2024 11:20 AM
--- NOTE | 2024-05-02 11:39 | XR ---
EXAMINATION TYPE: XR chest 1V portable DATE OF EXAM: 05/02/2024 Comparison: 07/22/2021 Clinical History: 78-year-old male Port-A-Cath placement Findings: Right anterior chest wall injection port with catheter tip at the mid to lower SVC. Heart mildly enla rged. There is diffuse interstitial density present. Similar to slightly increased from prior. No ple ural effusion. Impression: 1. Right anterior chest wall injection port. There is subclavian access and catheter tip at the mid t o lower SVC. 2. Correlate for ongoing CHF with mild interstitial pulmonary edema. Similar to minimally worsened. [facility], Workstation: [email or web address], 05/02/2024 11:36 AM
[2024-05-02 12:32] VITALS: BP 143/73; PULSE 54
== END 2024-05-02 12:50 | disposition home or self-care (01) ==
LOC: OR 07:50
PROVIDERS: ATTEND Surgery
DX: C25.9 Malignant neoplasm of pancreas, unspecified (principal); E78.5 Hyperlipidemia, unspecified; I10 Essential (primary) hypertension; E03.9 Hypothyroidism, unspecified; Z79.890 Hormone replacement therapy; Z87.891 Personal history of nicotine dependence; Z98.890 Other specified postprocedural states; Z79.899 Other long term (current) drug therapy
CPT/HCPCS: 77001; 71045; 36561; C1788; J2250; J1644; J1100; J2405; J0690 ×2; J2001; J3010; J2704